=== PATIENT | male | born 1960 | race Caucasian/White ===

== ENCOUNTER 2023-12-09 09:15 | Outpatient (OUT) | payer OTHER, SELFPAY ==
[2023-12-09 09:40] LABS: Estimated Average Glucose 180 mg/dL; Glycohemoglobin A1C 7.9 % (4.5-6.2)
[2023-12-09 09:53] LABS: Anion Gap 10.1; BUN Creatinine Ratio 8.8; Calcium 9.1 mg/dL (8.5-10.1); Carbon Dioxide 32.3 mmol/L (21.0-32.0); Chloride 102 mmol/L (98-107); Estimated GFR (African America >60 (>=60); Estimated GFR (Non-African Ame >60 (>=60); Glucose 188 mg/dL (74-106); Potassium 3.4 mmol/L (3.5-5.1); Sodium 141 mmol/L (136-145)
== END 2023-12-09 09:16 | disposition home or self-care (01) ==
LOC: LAB 09:19
PROVIDERS: PCP Internal Medicine; Visit Provider Internal Medicine
DX: E11.65 Type 2 diabetes mellitus with hyperglycemia (principal); I10 Essential (primary) hypertension
CPT/HCPCS: 36415; 80048; 83036

== ENCOUNTER 2023-12-30 12:51 | Outpatient (OUT) | payer OTHER, SELFPAY ==
--- NOTE | 2023-12-30 12:54 | CT_ITS ---
[address] [address] Patient Name: ANA MARIA MARY MRN: [id number] date: 1960 Sex: M Assigned Patient Location: CT Current Patient Location: Accession/Order Number: [id number] Exam Date: 12/30/2023 12:56 Report Date: 12/31/2023 06:11 At the request of: RADHA LUNDBERG Procedure: CT lung screening low-dose EXAMINATION: CT lung screening low-dose HISTORY: Nicotine Dependence F17.211 COMPARISON: No relevant comparison available. TECHNIQUE: Axial, Coronal, and Sagittal images were created without the administration of IV contrast material. Dose reduction techniques were achieved by using automated exposure control and/or adjustment of mA and/or kV according to patient size and/or use of iterative reconstruction technique. FINDINGS: LUNGS: No visible pulmonary disease. PLEURA: No mass, effusion, or pneumothorax. VASCULATURE: No abnormality. ALEXANDR: No mass or pathologic adenopathy. MEDIASTINUM: No mass or pathologic adenopathy. CARDIAC: No enlargement, pericardial thickening, or pericardial effusion. Coronary Artery calcifications: Coronary calcifications are mild. AORTA: No aneurysm or dissection. CHEST WALL: No mass or axillary adenopathy BONES: No bone lesion or fracture. LIMITED ABDOMEN: No suspicious findings. Limited images of the upper abdomen. OTHER: Negative. CT/CT lung screening low-dose IMPRESSION: 1. Lung-RADS Category 1 Negative. No nodules and definitely benign nodules. Continue annual screening with LDCT in 12 months. Electronically authenticated by: GLENN LAW Date: 12/31/2023 06:11
== END 2023-12-30 12:52 | disposition home or self-care (01) ==
LOC: CT 12:51
PROVIDERS: PCP Internal Medicine; Visit Provider Internal Medicine
DX: F17.211 Nicotine dependence, cigarettes, in remission (principal)
CPT/HCPCS: 71271

== ENCOUNTER 2024-05-03 16:38 | Outpatient (OUT) | payer BC, SELFPAY ==
--- OUTSIDE RECORDS SUMMARY | 2024-05-03 16:43 | XMS_ITS | CCD ---
Author Organization [facility] Care Team Providers Care Components Engineer Name Role Phone Talya Mcnamara Cedric Lundberg Unavailable JADIEL, DR STEELE Admitting Unavailable JADIEL, DR STEELE Attending Unavailable JADIEL, DR STEELE Primary Care Unavailable JADEIL, DR STEELE Consulting Unavailable JADIEL, DR STEELE Admitting Unavailable JADIEL, DR STEELE Attending Unavailable JADIEL, DR STEELE Primary Care Unavailable JADIEL, DR STEELE Consulting DO Cedric Dumas Primary Care Provider MD Talya Mcnamara Attending Provider Talya Mcnamara Attending Unavailable Talya Mcnamara Admitting Unavailable Cedric Lundberg Primary Care Cedric Dumas DO Primary Care Provider [phone] Talya Mcnamara MD Attending Provider [phone] Medications Current Medications Medication Drug Class(es) Dates Sig (Normalized) Sig (Original) allopurinol 300 mg oral tablet (20 sources) Xanthine Oxidase Inhibitor Start: 09-08-2023 End: 02-29-2024 take 1 tablet by mouth once daily Allopurinol 300 mg tablet Active 0 .ROUTE .COMPLEX 180 February 29, 2024 4:58pm TAKE 1 TABLET BY MOUTH DAILY Start: 09-08-2023 take 1 tablet by carmen th once daily Allopurinol Active 0 .ROUTE .COMPLEX 90 September 08, 2023 11:23am TAKE 1 TABLET BY MOUTH DAILY Start: 09-07-2020 End: 09-08-2023 take 1 tablet by mouth once daily Allopurinol 300 mg tablet Discontinued 300 MG PO Daily September 06, 2020 11:00pm September 08, 2023 10:23am Allopurinol Acti ve alogliptin 25 mg oral tablet (6 sources) Start: 08-27-2023 take 1 tablet by mouth once daily in the morning Alogliptin 25 mg tablet Active 25 MG PO Every morning August 26, 2023 11:00pm glimepiride 2 mg oral tablet (20 sources) Sulfonylurea Start: 12-14-2023 take 3 mg by mouth once daily Glimepiride 2 mg tablet Active 3 MG PO Daily 135 90 December 14, 2023 9:44am Start: 12-14-2023 take 3 mg by mouth once daily Glimepiride Active 3 MG PO Daily 135 90 December 14, 2023 10:44am Start: 11-30-2023 End: 12-14-2023 take 1 tablet by mouth once daily 30 minutes before breakfast Glimepiride Discontinued 0 .ROUTE .COMPLEX November 30, 2023 8:50pm December 14, 2023 10:46am TAKE 1 TABLET BY MOUTH DAILY 30 MINUTES BEFORE BREAKFAST * do not skip lunch or supper* Start: 11-30-2023 End: 12-14-2023 take 1 tablet by mouth once daily 30 minutes before breakfast Glimepiride 2 mg tablet Discontinued 0 .ROUTE .COMPLEX November 30, 2023 7:50pm December 14, 2023 9:46am TAKE 1 TABLET BY MOUTH DAILY 30 MINUTES BEFORE BREAKFAST * do not skip lunch or supper* Start: 11-30-2023 End: 11-30-2023 take 1 tablet by mouth once daily 30 minutes before breakfast Glimepiride Discontinued 0 .ROUTE .COMPLEX November 30, 2023 8:39am November 30, 2023 8:50pm TAKE 1 TABLET BY MOUTH DAILY 30 MINUTES BEFORE BREAKFAST * do not skip lunch or supper* Start: 09-07-2020 End: 11-30-2023 take 1 tablet by mouth once daily Glimepiride 2 mg tablet Discontinued 2 MG PO Daily September 06, 2020 11:00pm November 30, 2023 7:39am metFORMIN hydrochloride 1000 mg oral tablet (20 sources) Biguanide Start: 11-17-2023 take 1 tablet by mouth twice daily at mealtime Metformin 1,000 mg tablet Active 0 .ROUTE .COMPLEX 60 November 17, 2023 7:46am TAKE 1 TABLET BY MOUTH TWICE DAILY WITH FOOD Start: 08-27-2023 End: 11-17-2023 take 1 tablet by mouth twice daily Metformin 1,000 mg tablet Discontinued 1000 MG PO Twice daily 60 30 August 26, 2023 11:00pm November 17, 2023 7:47am Start: 09-07-2020 End: 08-27-2023 take 2 tablets by mouth once daily Metformin 1,000 mg tablet Discontinued 2000 MG PO Daily September 06, 2020 11:00pm August 27, 2023 11:34am Start: 09-07-2020 End: 08-27-2023 take 2000 mg by mouth once daily Metformin Discontinue d 2000 MG PO Daily September 07, 2020 12:00am August 27, 2023 12:34pm take 1 tablet by carmen th twice daily at mealtime metFORMIN HCl 1000 MG TAKE 1 TABLET BY MOUTH TWICE DAILY WITH FOOD Active potassium chloride 10 meq extended release oral tablet (20 sources) Start: 08-27-2023 End: 11-30-2023 take 1 tablet by mouth once daily Potassium Chloride 10 mEq tablet extended release Active 0 .ROUTE .COMPLEX 150 November 30, 2023 7:39am TAKE 1 TABLET BY MOUTH DAILY Start: 08-27-2023 End: 08-27-2023 Potassium Chloride (Klor-Con 10) 10 mEq tablet extended release Discontinued 10 MEQ PO Daily 30 August 27, 2023 1:00pm August 27, 2023 3:58pm sertraline 100 mg oral tablet (20 sources) Serotonin Reuptake Inhibitor Start: 09-04-2023 End: 02-29-2024 take 1 tablet by mouth once daily Sertraline 100 mg tablet Active 0 .ROUTE .COMPLEX 270 February 29, 2024 4:59pm TAKE 1 & 1/2 (ONE AND ONE-HALF) TABLETS BY MOUTH DAILY Start: 06-01-2023 End: 09-04-2023 Sertraline 100 mg tablet Dis continued MG PO May 31, 2023 11:00pm September 04, 2023 7:42am FreeTextSig: TAKE 1 AND 1/2 TABLETS BY MOUTH DAILY; Note: Source Status: Taking; Refills: 1; Qty: 135 Tablet; Provider: Jadiel Steele ( ) Start: 06-01-2023 End: 09-04-2023 Sertraline Discontinued MG P O June 01, 2023 12:00am September 04, 2023 8:42am FreeTextSig: TAKE 1 AND 1/2 TABLETS BY MOUTH DAILY; Note: Source Status: Taking; Refills: 1; Qty: 135 Tablet; Provider: Jadiel Steele ( ) Sertraline HCl 1 00 MG TAKE 1 AND 1/2 TABLETS BY MOUTH DAILY for 90 Active Sertraline HCl 1 00 MG TAKE 1 AND 1/2 TABLETS BY MOUTH DAILY for 90 Active Sertraline HCl A ctive Completed/Discontinued Medications Medication Drug Class(es) Dates Sig (Normalized) Sig (Original) amoxicillin 875 mg / clavulanate 125 mg oral tablet (11 sources) Penicillin-class Antibacterial Start: 06-01-2023 End: 07-14-2023 take 1 tablet by mouth every twelve hours Amoxicillin-Pot Clavulanate 875-125 mg tablet Discontinued 1 TAB PO Every 12 hours May 31, 2023 11:00pm July 14, 2023 8:59am FreeTextSi tablet Orally every 12 hrs; Note: Source Status: Taking; Refills: 0; Qty: 14 Tablet; Provider: Jadiel Valladares Start: 02-10-2023 take 1 tablet by carmen th every twelve hours Amoxicillin-Pot Clavulanate 875-125 MG 1 tablet Orally every 12 hrs for 7 days Jan, Active hydroCHLOROthiazide 50 mg oral tablet (20 sources) Thiazide Diuretic Start: 2023 End: 2023 take 3 tablets by mouth once daily Hydrochlorothiazide 50 mg tablet Discontinued 150 MG PO Daily 2023 9:36am 2023 9:37am Start: 2023 End: 2023 take 150 mg by mouth once daily Hydrochlorothiazide Discontinued 150 MG PO Daily 2023 10:36am 2023 10:37am Start: 09-07-2020 End: 2023 take 2 tablets by mouth once daily Hydrochlorothiazide 50 mg tablet Discontinued 100 MG PO Daily 2023 9:37am 2023 9:38am Start: 09-07-2020 End: 2023 take 100 mg by mouth once daily Hydrochlorothiazide Discontinued 100 MG PO Daily 2023 10:37am 2023 10:38am take 1 tablet by carmen th every twenty-four hours hydroCHLOROthiazide 50 MG 1 tablet in the morning Orally Once a day for 90 days Active hydroCHLOROthiaz astrid Active metFORMIN hydrochloride 1000 mg / SITagliptin 50 mg oral tablet (12 sources) Biguanide, Dipeptidyl Peptidase 4 Inhibitor Start: 08-27-2023 End: 08-27-2023 take 1 tablet by mouth twice daily Sitagliptin Phos-Metformin (Janumet) 50-1,000 mg tablet Discontinued 1 TAB PO Twice daily 60 30 August 27, 2023 1:00pm August 27, 2023 9:22pm triamcinolone acetonide 40 mg/ml injectable suspension (20 sources) Corticosteroid Start: 07-08-2022 Kenalog-40 30 Mar, 2023 20 mg Problems Active Problems Problem Classification Problem Date Documented Date Episodic/Chronic Anal and rectal conditions (8 sources) Rectal polyp; Translations: [Hyperplastic rectal polyp] Episodic Anxiety disorders (11 sources) Generalized anxiety disorder; Translations: [Generalized anxiety disorder] Chronic Bacterial infection; unspecified site (1 source) Bacterial infectious disease; Translations: [Other specified bacterial agents as the cause of diseases classified elsewhere] Episodic Calculus of urinary tract (15 sources) H/O: urinary stone; Translations: [Personal history of urinary calculi] 08-12-2023 Episodic Diabetes mellitus with complications (20 sources) Hyperglycemia due to type 2 diabetes mellitus; Translations: [Type 2 diabetes mellitus with hyperglycemia] Onset: 02-20-2022 Chronic Diabetes mellitus without complication (1 source) Impaired fasting glycemia; Translations: [Impaired fasting glucose] Episodic Essential hypertension (20 sources) Essential hypertension; Translations: [Essential (primary) hypertension] Chronic Hyperplasia of prostate (2 sources) Benign prostatic hypertrophy without outflow obstruction; Translations: [Hypertrophy (benign) of prostate without urinary obstruction and other lower urinary tract symptoms [LUTS]] Onset: 09-05-2016 Chronic Immunizations and screening for infectious disease (1 source) Vaccination given; Translations: [Encounter for immunization] Episodic Osteoarthritis (20 sources) Arthritis of first carpometacarpal joint of left hand; Translations: [Unilateral primary osteoarthritis of first carpometacarpal joint, left hand] Chronic Other and unspecified benign neoplasm (8 sources) Benign neoplasm of rectum and anal canal; Translations: [Tubular adenoma polyp of rectum] Episodic Other congenital anomalies (1 source) Congenital spondylolysis of lumbosacral region; Translations: [Congenital spondylolysis, lumbosacral region] Onset: 03-06-2017 Chronic Other connective tissue disease (16 sources) 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; Translations: [Palmar fascial fibromatosis [Dupuytren]] 06-01-2023 Episodic Other connective tissue disease (15 sources) Palmar fascial fibromatosis [Dupuytren]; 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] Episodic Other connective tissue disease (15 sources) Trigger finger, left index finger; Translations: [Trigger finger (acquired)] Episodic Other connective tissue disease (13 sources) Trigger finger, left ring finger; Translations: [Trigger finger (acquired)] Episodic Other connective tissue disease (3 sources) Trigger finger, left little finger Episodic Other connective tissue disease (8 sources) Contracture of palmar fascia; Translations: [Palmar fascial fibromatosis [Dupuytren]] Episodic Other connective tissue disease (4 sources) Acquired trigger finger; Translations: [Trigger finger, left index finger] Episodic Other connective tissue disease (12 sources) Pain in left hand; Translations: [Pain in limb] Onset: 01-22-2024 Episodic Other connective tissue disease (7 sources) Hand pain; Translations: [Pain in left hand] 06-01-2023 Episodic Other connective tissue disease (16 sources) Triggering of digit; Translations: [Trigger finger, left index finger] 06-01-2023 Episodic Other connective tissue disease (4 sources) Tendonitis of left wrist; Translations: [Other enthesopathies, not elsewhere classified] 01-22-2024 Episodic Other connective tissue disease (6 sources) Other enthesopathies, not elsewhere classified; Translations: [Other tenosynovitis of hand and wrist] 01-22-2024 Episodic Other non-traumatic joint disorders (1 source) Arthralgia of the upper arm; Translations: [Pain in right elbow] Episodic Other non-traumatic joint disorders (1 source) Pain in left wrist Episodic Other nutritional; endocrine; and metabolic disorders (11 sources) Body mass index 30+ - obesity; Translations: [Body mass index (BMI) 35.0-35.9, adult] Onset: 09-14-2015 Chronic Other nutritional; endocrine; and metabolic disorders (7 sources) Severe obesity; Translations: [Morbid (severe) obesity due to excess calories] Chronic Other nutritional; endocrine; and metabolic disorders (2 sources) Morbid (severe) obesity due to excess calories Chronic Other nutritional; endocrine; and metabolic disorders (2 sources) Body mass index (BMI) 35.0-35.9, adult Chronic Other nutritional; endocrine; and metabolic disorders (7 sources) Obesity; Translations: [Obesity, unspecified] 2023 Chronic Other nutritional; endocrine; and metabolic disorders (2 sources) Obese class II; Translations: [Body mass index 35.0-35.9, adult] Onset: 09-14-2015 Chronic Other nutritional; endocrine; and metabolic disorders (5 sources) Obesity, unspecified; Translations: [Obesity, unspecified] 2023 Chronic Other screening for suspected conditions (not mental disorders or infectious disease) (18 sources) Encounter for screening for malignant neoplasm of prostate; Translations: [Patient encounter status] Episodic Comment on above: Problem List clean-u p per request of Phys. EHR Cmte Otitis media and related conditions (2 sources) Acute suppurative otitis media without spontaneous rupture of ear drum; Translations: [Acute suppurative otitis media without spontaneous rupture of eardrum] Onset: 06-03-2018 Episodic Residual codes; unclassified (2 sources) Tobacco user; Translations: [Nondependent tobacco use disorder] Onset: 09-14-2015 Episodic Sprains and strains (2 sources) Strain of muscle and/or tendon of lower leg; Translations: [Strain of unspecified muscle(s) and tendon(s) at lower leg level, right leg, initial encounter] Episodic Substance-related disorders (20 sources) Tobacco dependence in remission; Translations: [Nicotine dependence, cigarettes, in remission] Onset: 09-14-2015 Chronic Comment on above: Age started 17, age stopped 56, PPD 1,LDCT: no suspicious nodules - 12/2023 Age started 17, age stopped 56, 1 PPD,LDCT: no suspicious nodules - 12/2023 Past or Other Problems Problem Classification Problem Date Documented Da te Episodic/Chronic Diseases of mouth; excluding dental (1 source) Recurrent aphthous stomatitis; Translations: [Recurrent oral aphthae] Onset: 06-03-2018 Episodic Joint disorders and dislocations; trauma-related (1 source) Current tear of medial cartilage AND/OR meniscus of knee; Translations: [Other tear of medial meniscus, current injury, right knee, initial encounter] Onset: 07-28-2016 Episodic Nonspecific chest pain (1 source) Chest pain; Translations: [Chest pain, unspecified] Onset: 06-03-2018 Episodic Other and unspecified benign neoplasm (1 source) Lipoma (clinical); Translations: [Lipoma of unspecified site] Onset: 06-03-2018 Episodic Other bone disease and musculoskeletal deformities (1 source) Tietze's disease; Translations: [Tietze's disease] Onset: 06-03-2018 Episodic Other gastrointestinal disorders (1 source) Oropharyngeal dysphagia; Translations: [Dysphagia, oropharyngeal phase] Onset: 09-07-2017 Episodic Other nervous system disorders (1 source) Paresthesia; Translations: [Paresthesia of skin] Onset: 03-09-2018 Episodic Other non-traumatic joint disorders (1 source) Arthralgia of the lower leg; Translations: [Pain in joint, lower leg] Onset: 07-28-2016 Episodic Other upper respiratory infections (1 source) Acute maxillary sinusitis; Translations: [Acute recurrent maxillary sinusitis] Onset: 05-14-2015 Episodic Screening and history of mental health and substance abuse codes (1 source) History of tobacco use; Translations: [Personal history of tobacco use, presenting hazards to health] Onset: 09-14-2015 Episodic Results Test Name Value Interpretation Reference Range Facility XR hand LT min 3V*on 024 XR hand LT min 3V* [facility] [address] [place] [address] XRay Report Signed Patient: Sharan Clemente MR#: [id number] : 1960 Acct:[id number] Age/Sex: 63 / M ADM Date: 01/22/24 Loc: [facility] Room: Type: [facility] Attending Dr: Talya Mcnamara MD Copies to: Talya Mcnamara MD Ordering Provider: Talya Mcnamara MD Date of Service: 01/22/24 XR/XR hand LT min 3V*: M79.642 - Pain in left hand LEFT HAND - 4 views COMPARISON: None CLINICAL DATA: chronic pain at the first carpal metacarpal joint. AP, lateral and oblique views were obtained along with supplemental AP view of the thumb. There is no acute fracture or dislocation. There is joint space narrowing at the first carpal metacarpal joint where there is also hypertrophy. There are no significant soft tissue abnormalities. There is atherosclerotic disease involving a vessel traversing the lateral wrist XR/XR hand LT min 3V* IMPRESSION: DEGENERATIVE CHANGE AT THE FIRST CARPOMETACARPAL JOINT. NO ACUTE BONY FINDINGS. Impression dictated by: Katie Castro M.D.01/22/2024 2:07 PM Dictation Location: [place] [address] Transcribed By: [facility] 01/22/24 140 Dictated By: Katie Castro MD 01/22/24 140 Signed By: 01/22/24 140 Normal [facility] Estimated glomerular filtrat ion rate (GFR) non- Americanon 12-09-2023 GFR/1.73 sq M.predicted among non-blacks MDRD (S/P/Bld) [Vol rate/Area] mL/min/{1.73_m2} >=60 [facility] Glucose mean value [Mass/vol ume] in Blood Estimated from glycated hemoglobinon 12-09-2023 Average glucose Estimated from glycated hemoglobin (Bld) [Mass/Vol] 180 mg/dL [facility] Laboratory - Chemistry and C hemistry - challengeon 12-09-2023 Calcium [Mass/Vol] 9.1 mg/dL 8.5-10.1 [facility] Chloride [Moles/Vol] 102 mmol/L 98-107 [facility] CO2 [Moles/Vol] 32.3 mmol/L High 21.0-32.0 [facility] Creatinine [Mass/Vol] 0.91 mg/dL 0.70-1.30 [facility] GFR/1.73 sq M.predicted MDRD (S/P/Bld) [Vol rate/Area] mL/min/{1.73_m2} >=60 [facility] Glucose [Mass/Vol] 188 mg/dL High 74-106 [facility] Potassium [Moles/Vol] 3.4 mmol/L Low 3.5-5.1 [facility] Sodium [Moles/Vol] 141 mmol/L 136-145 [facility] Urea nitrogen [Mass/Vol] 8.0 mg/dL 7.0-18.0 [facility] Urea nitrogen/Creatinine [Mass ratio] 8.8 mg/mg [facility] Laboratory - Hematology and Cell countson 12-09-2023 HbA1c (Bld) [Mass fraction] 7.9 % High 4.5-6.2 [facility] Comment on above: ADA RECOMMENDED LIMI T 4.0 - 6.0ADA THERAPEUTIC TARGET < 7.0ACTION SUGGESTED> 7.0 Serum or plasma anion gap de terminationon 12-09-2023 Anion gap [Moles/Vol] 10.1 mmol/L [facility] Basophils Auto (Bld) [#/Vol] on 08-26-2023 Basophils (Bld) [#/Vol] 0.1 10 3/uL 0.0-0.1 [facility] Basophils/100 WBC Auto (Bld) on 08-26-2023 Basophils/100 WBC (Bld) 1.0 % 0.2-2.0 [facility] Cholesterol in LDL Calc [Mas s/Vol]on 08-26-2023 Cholesterol in LDL [Mass/Vol] 90.0 mg/dL [facility] Comment on above: <100 mg/dl [id number] 0-129 mg/dl NEAR OR ABOVE [id number] mg/dl BORDERLINE [id number] mg/dl HIGH>190 mg/dl VERY HIGH Cholesterol in VLDL Calc [Ma ss/Vol]on 08-26-2023 Cholesterol in VLDL [Mass/Vol] 40.0 mg/dL [facility] Eosinophils/100 WBC Auto (Bl d)on 08-26-2023 Eosinophils/100 WBC (Bld) 3.9 % 0.9-7.0 [facility] Erythrocyte distribution wid th Auto (RBC) [Ratio]on 08-26-2023 Erythrocyte distribution width (RBC) [Ratio] 11.8 % 11.0-15.0 [facility] Estimated glomerular filtrat ion rate (GFR) non- Americanon 08-26-2023 GFR/1.73 sq M.predicted among non-blacks MDRD (S/P/Bld) [Vol rate/Area] mL/min/{1.73_m2} >=60 [facility] Globulin Calc (S) [Mass/Vol] on 08-26-2023 Globulin (S) [Mass/Vol] 3.7 g/dL [facility] Glucose mean value [Mass/vol ume] in Blood Estimated from glycated hemoglobinon 08-26-2023 Average glucose Estimated from glycated hemoglobin (Bld) [Mass/Vol] 203 mg/dL [facility] Hematocrit Auto (Bld) [Volum e fraction]on 08-26-2023 Hematocrit (Bld) [Volume fraction] 44.0 % 42.0-54.0 [facility] Hemoglobin [Mass/volume] in Bloodon 08-26-2023 Hemoglobin (Bld) [Mass/Vol] 15.0 g/dL 14.0-18.0 [facility] Laboratory - Chemistry and C hemistry - challengeon 08-26-2023 Albumin [Mass/Vol] 4.0 g/dL 3.4-5.0 [facility] ALP [Catalytic activity/Vol] 86 U/L 46-116 [facility] ALT [Catalytic activity/Vol] 31 U/L 16-63 [facility] AST [Catalytic activity/Vol] 16 U/L 15-37 [facility] Bilirubin [Mass/Vol] 0.6 mg/dL 0.2-1.0 [facility] Calcium [Mass/Vol] 9.3 mg/dL 8.5-10.1 [facility] Chloride [Moles/Vol] 100 mmol/L 98-107 [facility] Cholesterol [Mass/Vol] 178 mg/dL <=200 [facility] Cholesterol in HDL [Mass/Vol] 48 mg/dL 40-60 [facility] Comment on above: > or =60 mg/dl - LOW CARDIOVASCULAR RISK<40 mg/dl - HIGH CARDIOVASCULAR RISK CO2 [Moles/Vol] 32.4 mmol/L High 21.0-32.0 [facility] Creatinine [Mass/Vol] 1.00 mg/dL 0.70-1.30 [facility] GFR/1.73 sq M.predicted MDRD (S/P/Bld) [Vol rate/Area] mL/min/{1.73_m2} >=60 [facility] Glucose [Mass/Vol] 197 mg/dL High 74-106 [facility] Potassium [Moles/Vol] 3.1 mmol/L Low 3.5-5.1 [facility] Protein [Mass/Vol] 7.7 g/dL 6.4-8.2 [facility] Sodium [Moles/Vol] 141 mmol/L 136-145 [facility] Triglyceride [Mass/Vol] 200 mg/dL High <=150 [facility] Urea nitrogen [Mass/Vol] 12.0 mg/dL 7.0-18.0 [facility] Urea nitrogen/Creatinine [Mass ratio] 12.0 mg/mg [facility] Laboratory - Hematology and Cell countson 08-26-2023 HbA1c (Bld) [Mass fraction] 8.7 % High 4.5-6.2 [facility] Comment on above: ADA RECOMMENDED LIMI T 4.0 - 6.0ADA THERAPEUTIC TARGET < 7.0ACTION SUGGESTED> 7.0 Immature granulocytes/100 WBC (Bld) 0.3 % 0.0-0.5 [facility] Leukocytes [#/volume] correc renato for nucleated erythrocytes in Blood by Automated counon 08-26-2023 WBC corrected for nucl RBC Auto (Bld) [#/Vol] 7.7 10 3/uL 4.0-11.0 [facility] Lymphocytes Auto (Bld) [#/Vo l]on 08-26-2023 Lymphocytes (Bld) [#/Vol] 2.6 10 3/uL 1.2-3.8 [facility] Lymphocytes/100 WBC Auto (Bl d)on 08-26-2023 Lymphocytes/100 WBC (Bld) 33.3 % 20.5-60.0 [facility] MCH Auto (RBC) [Entitic mass ]on 08-26-2023 MCH (RBC) [Entitic mass] 30.9 pg 25.9-34.0 [facility] MCHC Auto (RBC) [Mass/Vol]on 08-26-2023 MCHC (RBC) [Mass/Vol] 34.1 g/dL 29.9-35.2 [facility] MCV Auto (RBC) [Entitic vol] on 08-26-2023 MCV (RBC) [Entitic vol] 90.5 fL 80.0-94.0 [facility] Monocytes Auto (Bld) [#/Vol] on 08-26-2023 Monocytes (Bld) [#/Vol] 0.6 10 3/uL 0.3-0.8 [facility] Monocytes/100 WBC Auto (Bld) on 08-26-2023 Monocytes/100 WBC (Bld) 7.8 % 1.7-12.0 [facility] Neutrophils Auto (Bld) [#/Vo l]on 08-26-2023 Neutrophils (Bld) [#/Vol] 4.2 10 3/uL 1.4-6.5 [facility] Neutrophils/100 WBC Auto (Bl d)on 08-26-2023 Neutrophils/100 WBC (Bld) 53.7 % 43.0-75.0 [facility] No Panel Informationon 08-25 Eosinophils # (Auto) 0.3 10 3/uL 0.0-0.7 [facility] Immature Granulocyte # (Auto) 0.02 10 3/uL 0.00-0.03 [facility] Nucleated Red Blood Cells/100 WBC 0 [facility] Prostate Specific Antigen Screen 1.46 ng/mL <=4.00 [facility] Platelet mean volume Auto (B ld) [Entitic vol]on 08-26-2023 Platelet mean volume (Bld) [Entitic vol] 9.9 fL 9.5-13.5 [facility] Platelets Auto (Bld) [#/Vol] on 08-26-2023 Platelets (Bld) [#/Vol] 386 10 3/uL 150-450 [facility] RBC Auto (Bld) [#/Vol]on RBC (Bld) [#/Vol] 4.86 10 6/uL 4.70-6.10 [facility] Serum or plasma albumin/glob ulin mass ratioon 08-26-2023 Albumin/Globulin [Mass ratio] 1.1 {ratio} [facility] Serum or plasma anion gap de terminationon 08-26-2023 Anion gap [Moles/Vol] 11.7 mmol/L [facility] Serum or plasma total choles terol/high density lipoprotein (HDL) cholesterol mass yamila 08-26-2023 Cholesterol.total/Ch olesterol in HDL [Mass ratio] 3.7 {ratio} [facility] Comment on above: 3.3 - 4.4 LOW RISK4. 4 - 7.1 AVERAGE RISK7.1 - 11.0 MODERATE RISK>11.0 HIGH RISK CBC AUTO DIFFon 08-01-2022 BASO # 0.1 103/ul Normal 0.0-0.1 [facility] [facility] Comment on above: Performed By: #### C BC #### [facility] [address] [address] [address] Wendi Martinez Basophils/100 WBC (Bld) 0.9 % Normal 0.2-2.0 [facility] Comment on above: Performed By: #### C BC #### [facility] [address] [address] [address] Wendi Martinez EO # 0.3 103/ul Normal 0.0-0.7 [facility] Comment on above: Performed By: #### C BC #### [facility] [address] [address] [address] Wendi Martinez Eosinophils/100 WBC (Bld) 3.8 % Normal 0.9-7.0 [facility] Comment on above: Performed By: #### C BC #### [facility] [address] [address] [address] Wendi Martinez Erythrocyte distribution width (RBC) [Ratio] 12.1 % Normal 11.0-15.0 [facility] Comment on above: Performed By: #### C BC #### [facility] [address] [address] [address] Wendi Martinez Hematocrit (Bld) [Volume fraction] 45.6 % Normal 42.0-54.0 [facility] Comment on above: Performed By: #### C BC #### [facility] [address] [address] [address] Wendi Martinez Hemoglobin (Bld) [Mass/Vol] 15.5 g/dL Normal 14.0-18.0 [facility] Comment on above: Performed By: #### C BC #### [facility] [address] [place] [address] Dr. Wendi Martinez IG # 0.02 10e3/ul Normal 0.00-0.03 [facility] Comment on above: Performed By: #### C BC #### [facility] [address] [place] [address] Dr. Wendi Martinez IG % 0.3 % Normal 0.0-0.5 [facility] Comment on above: Performed By: #### C BC #### [facility] [address] [place] [address] Dr. Wendi Martinez LYMPH # 2.7 103/ul Normal 1.2-3.8 [facility] Comment on above: Performed By: #### C BC #### [facility] [address] [place] [address] Dr. Wendi Martinez Lymphocytes/100 WBC (Bld) 35.1 % Normal 20.5-60.0 [facility] Comment on above: Performed By: #### C BC #### [facility] [address] [place] [address] Dr. Wendi Martinez MANUAL DIFF REQ NO Normal [facility] Comment on above: Performed By: #### C BC #### [facility] [address] [place] [address] Dr. Wendi Martinez MCH (RBC) [Entitic mass] 30.8 pg Normal 25.9-34.0 [facility] Comment on above: Performed By: #### C BC #### [facility] [address] [place] [address] Dr. Wendi Martinez MCHC (RBC) [Mass/Vol] 34.0 g/dL Normal 29.9-35.2 [facility] Comment on above: Performed By: #### C BC #### [facility] [address] [place] [address] Dr. Wendi Martinez MCV (RBC) [Entitic vol] 90.7 fL Normal 80.0-94.0 [facility] Comment on above: Performed By: #### C BC #### [facility] [address] [place] [address] Dr. Wendi Martinez MONO # 0.7 103/ul Normal 0.3-0.8 [facility] Comment on above: Performed By: #### C BC #### [facility] [address] [place] [address] Dr. Wendi Martinez Monocytes/100 WBC (Bld) 9.3 % Normal 1.7-12.0 [facility] Comment on above: Performed By: #### C BC #### [facility] [address] [place] [address] Dr. Wendi Martinez NEUT # 3.8 103/ul Normal 1.4-6.5 [facility] Comment on above: Performed By: #### C BC #### [facility] [address] [place] [address] Dr. Wendi Martinez Neutrophils/100 WBC (Bld) 50.6 % Normal 43.0-75.0 [facility] Comment on above: Performed By: #### C BC #### [facility] [address] [place] [address] Dr. Wendi Martinez Platelet mean volume (Bld) [Entitic vol] 9.9 fL Normal 9.5-13.5 [facility] Comment on above: Performed By: #### C BC #### [facility] [address] [place] [address] Dr. Wendi Martinez PLT 345 103/ul Normal 150-450 [facility] Comment on above: Performed By: #### C BC #### [facility] [address] [place] [address] Dr. Wendi Martinez RBC 5.03 106/ul Normal 4.70-6.10 [facility] Comment on above: Performed By: #### C BC #### [facility] [address] [place] [address] Dr. Wendi Martinez WBC 7.6 103/ul Normal 4.0-11.0 [facility] Comment on above: Performed By: #### C BC #### [facility] [address] [place] [address] Dr. Wendi Martinez Complete Blood Count and Dif abdirashid 08-01-2022 Anisocytosis Ql (Bld) [facility] [employer] Other Basophilic stippling LM Ql (Bld) [employer] Other RBC morphology finding Nom (Bld) [employer] Other Complete Blood Count and Diff [employer] Other Comprehensive Metabolic Pane neftaly 08-01-2022 Albumin [Mass/Vol] 4.946690 g/dL 3.4-5.0 g/dL [facility] [employer] Other Calcium [Mass/Vol] 9.1484455 mg/dL 8.5-10 .1 mg/dL [facility] Other CO2 [Moles/Vol] 30.15256658 mmol/L 21.0-3 2.0 mmol/L [facility] Other Creatinine [Mass/Vol] 0.76396035 mg/dL 0.70-1.30 mg/dL [facility] [employer] Other Potassium [Moles/Vol] 3.57118274 mmol/L Critically low 3.5-5.1 mmol/L [facility] Other Protein [Mass/Vol] 8.324902 g/dL Critically high 6.4-8.2 g /dL [employer] [employer] Other Urea nitrogen [Mass/Vol] 12.0996777 mg/dL 7.0-18.0 mg/dL [employer] [employer] Other Comprehensive Metabolic Panel see note [employer] Other Comprehensive Metabolic Panel 141 mmol/L 136-145 mmol/L [employer] Other Comprehensive Metabolic Panel 139 mg/dL Critically high 74-106 mg/dL [employer] [facility] [employer] Other Comprehensive Metabolic Panel >60 mL/min/1.73m2 >=60 mL/min/1.73m2 [employer] Other Comprehensive Metabolic Panel 0.6 mg/dL 0.2-1.0 mg/dL [facility] [employer] Other Comprehensive Metabolic Panel 4.2 g/dL [facility] [employer] Other Albumin/Globulin [Mass ratio] 1.0 {ratio} [employer] Other Comment on above: Performed By: #### L IPID, CMP #### [facility] [address] [address] [address] Wendi Martinez ALP [Catalytic activity/Vol] 86 U/L 46-116 U/L [facility] Other Comment on above: Performed By: #### L IPID, CMP #### [facility] [address] [place] [address] Dr. Wendi Martinez ALT [Catalytic activity/Vol] 40 U/L 16-63 U/L [facility] Other Comment on above: Performed By: #### L IPID, CMP #### [facility] [address] [address] [address] Wendi Martinez Anion gap [Moles/Vol] 12.5 mmol/L [facility] Other Comment on above: Performed By: #### L IPID, CMP #### [facility] [address] [address] [address] Wendi Martinez AST [Catalytic activity/Vol] 25 U/L 15-37 U/L [facility] [employer] Other Comment on above: Performed By: #### L IPID, CMP #### [facility] [address] [place] [address] Dr. Wendi Martinez Chloride [Moles/Vol] 101 mmol/L 98-107 mmol/L [facility] [employer] Other Comment on above: Performed By: #### L IPID, CMP #### [facility] [address] [place] [address] Dr. Wendi Martinez Urea nitrogen/Creatinine [Mass ratio] 12.5 mg/mg [facility] [employer] Other Comment on above: Performed By: #### L IPID, CMP #### [facility] [address] [address] [address] Wendi Martinez GLYCOHEMOGLOBIN A1Con 2022 ADA RECOMMENDATION SEE BELOW Normal [facility] Comment on above: Result Comment: ADA RECOMMENDED LIMIT 4.0 - 6.0 ADA THERAPEUTIC TARGET < 7.0 ACTION SUGGESTED > 7.0 Performed By: #### A 1C #### [facility] [address] [address] [address] Wendi Martinez Glucose [Mass/Vol] 154 mg/dL Normal [facility] Comment on above: Performed By: #### A 1C #### [facility] [address] [address] [address] Wendi Martinez HbA1c (Bld) [Mass fraction] 7.0 % Critically high 4.5-6.2 [facility] Comment on above: Performed By: #### A 1C #### [facility] [address] [address] [address] Wendi Martinez LIPID PROFILEon 08-01-2022 CHOL-HDL RATIO NORM SEE BELOW Normal [facility] Comment on above: Result Comment: 3.3 - 4.4 LOW RISK 4.4 - 7.1 AVERAGE RISK 7.1 - 11.0 MODERATE RISK >11.0 HIGH RISK Performed By: #### L IPID, CMP #### [facility] [address] [address] [address] Wendi Martinez Cholesterol in LDL [Mass/Vol] 91.2 mg/dL Normal [facility] Comment on above: Performed By: #### L IPID, CMP #### [facility] [address] [address] [address] Wendi Martinez HDL NORMAL > or = 60 mg/dl - LOW CARDIOVASCULAR RISK <40 mg/dl - HIGH CARDIOVASCULAR RISK Normal [facility] Comment on above: Performed By: #### L IPID, CMP #### [facility] [address] [address] [address] Wendi Martinez LDL CALC NORMAL SEE BELOW Normal [facility] Comment on above: Result Comment: <100 mg/dl OPTIMAL 100 - 129 mg/dl NEAR OR ABOVE OPTIMAL 130 - 159 mg/dl BORDERLINE HIGH 160 - 189 mg/dl HIGH >190 mg/dl VERY HIGH Performed By: #### L IPID, CMP #### [facility] [address] [address] [address] Wendi Martinez VLDL CALC 14.8 mg/dL Normal [facility] Comment on above: Performed By: #### L IPID, CMP #### [facility] [address] [address] [address] Wendi Martinez Lipid Panelon 08-01-2022 Lipid Panel > or = 60 mg/dl - LOW CARDIOVASCULAR RISK <40 mg/dl - HIGH CARDIOVASCULAR RISK [facility] Other Lipid Panel SEE BELOW [employer] Other Lipid Panel 91.2 mg/dL [employer] Other Lipid Panel 14.8 mg/dL [facility] Other Cholesterol [Mass/Vol] 167 mg/dL <=200 mg/dL [facility] Other Comment on above: Performed By: #### L IPID, CMP #### [facility] [address] [address] [address] Wendi Martinez Cholesterol in HDL [Mass/Vol] 61 mg/dL Critically high 40-60 mg/dL [facility] Other Comment on above: Performed By: #### L IPID, CMP #### [facility] [address] [address] [address] Wendi Martinez Cholesterol.total/Ch olesterol in HDL [Mass ratio] 2.7 {ratio} [facility] Other Comment on above: Performed By: #### L IPID, CMP #### [facility] [address] [address] [address] Wendi Martinez Triglyceride [Mass/Vol] 74 mg/dL <=150 mg/dL [facility] Other Comment on above: Performed By: #### L IPID, CMP #### [facility] [address] [place] [address] Dr. Wendi Martinez MICROALBUMIN, RAND URon 07-21 mALB <1.3 Normal <=30.0 [facility] Comment on above: Performed By: #### M ALBR #### [facility] [address] [place] [address] Dr. Wendi Martinez PROF 14(COMP METB)on 023 Albumin [Mass/Vol] 4.3 g/dL Normal 3.4-5.0 [facility] Comment on above: Performed By: #### L IPID, CMP #### [facility] [address] [place] [address] Dr. Wendi Martinez Bilirubin [Mass/Vol] 0.6 mg/dL Normal 0.2-1.0 [facility] Comment on above: Performed By: #### L IPID, CMP #### [facility] [address] [place] [address] Dr. Wendi Martinez Calcium [Mass/Vol] 9.3 mg/dL Normal 8.5-10.1 [facility] Comment on above: Performed By: #### L IPID, CMP #### [facility] [address] [place] [address] Dr. Wendi Martinez CO2 [Moles/Vol] 30.9 mmol/L Normal 21.0-32.0 [facility] Comment on above: Performed By: #### L IPID, CMP #### [facility] [address] [place] [address] Dr. Wendi Martinez Creatinine [Mass/Vol] 0.96 mg/dL Normal 0.70-1.30 [facility] Comment on above: Performed By: #### L IPID, CMP #### [facility] [address] [place] [address] Dr. Wendi Martinez EGFR-AF PORTUGUESE >60 Normal >=60 [facility] Comment on above: Performed By: #### L IPID, CMP #### [facility] [address] [place] [address] Dr. Wendi Martinez EGFR-NON AF PORTUGUESE >60 Normal >=60 [facility] Comment on above: Performed By: #### L IPID, CMP #### [facility] [address] [address] [address] Wendi Martinez Globulin (S) [Mass/Vol] 4.2 g/dL Normal [facility] Comment on above: Performed By: #### L IPID, CMP #### [facility] [address] [address] [address] Wendi Martinez Glucose [Mass/Vol] 139 mg/dL Critically high 74-106 [facility] Comment on above: Performed By: #### L IPID, CMP #### [facility] [address] [place] [address] Dr. Wendi Martinez Potassium [Moles/Vol] 3.4 mmol/L Critically low 3.5-5.1 [facility] Comment on above: Performed By: #### L IPID, CMP #### [facility] [address] [place] [address] Dr. Wendi Martinez Protein [Mass/Vol] 8.5 g/dL Critically high 6.4-8.2 [facility] Comment on above: Performed By: #### L IPID, CMP #### [facility] [address] [place] [address] Dr. Wendi Martinez Sodium [Moles/Vol] 141 mmol/L Normal 136-145 [facility] Comment on above: Performed By: #### L IPID, CMP #### [facility] [address] [place] [address] Dr. Wendi Martinez Urea nitrogen [Mass/Vol] 12.0 mg/dL Normal 7.0-18.0 [facility] Comment on above: Performed By: #### L IPID, CMP #### [facility] [address] [place] [address] Dr. Wendi Martinez A1C with Estimated Average G luon 07-31-2022 A1C with Estimated Average Glu [employer] Other GLYCOHEMOGLOBIN A1Con 2021 ADA RECOMMENDATION SEE BELOW Normal [facility] Comment on above: Result Comment: ADA RECOMMENDED LIMIT 4.0 - 6.0 ADA THERAPEUTIC TARGET < 7.0 ACTION SUGGESTED > 7.0 Performed By: #### A 1C #### [facility] [address] [address] [address] Wendi Martinez Glucose [Mass/Vol] 148 mg/dL Normal [facility] Comment on above: Performed By: #### A 1C #### [facility] [address] [address] [address] Wendi Martinez HbA1c (Bld) [Mass fraction] 6.8 % Critically high 4.5-6.2 [facility] Comment on above: Performed By: #### A 1C #### [facility] [address] [address] [address] Wendi Martinez Vital Signs Date Time Vital Sign Value Performing Clinician Facility 04-14-2024 10:40-0500 Body height 187.96 cm Cedric Ball DO Work Phone: [facility] 04-14-2024 10:40-0500 Body mass index (BMI) [Ratio] 34.4 kg/m2 Cedric Ball DO Work Phone: [facility] 04-14-2024 10:40-0500 Body weight 121.78 kg Cedric Ball DO Work Phone: [facility] 04-14-2024 10:40-0500 Diastolic blood pressure 89 mm[Hg] Cedric Ball DO Work Phone: [facility] 04-14-2024 10:40-0500 Heart rate 97 /min Cedric Ball DO Work Phone: [facility] 04-14-2024 10:40-0500 Respiratory rate 12 /min Cedric Ball DO Work Phone: [facility] 04-14-2024 10:40-0500 Systolic blood pressure 153 mm[Hg] Cedric Ball DO Work Phone: [facility] 12-14-2023 10:27-0400 Body height 187.96 cm [facility] 12-14-2023 10:27-0400 Body mass index (BMI) [Ratio] 35.3 kg/m2 [facility] 12-14-2023 10:27-0400 Body weight 124.73 kg [facility] 12-14-2023 10:27-0400 Diastolic blood pressure 80 mm[Hg] [facility] 12-14-2023 10:27-0400 Heart rate 90 /min [facility] 12-14-2023 10:27-0400 SaO2% (BldA) [Mass fraction] 98 % [facility] 12-14-2023 10:27-0400 Systolic blood pressure 134 mm[Hg] [facility] 2023 10:07-0400 Body height 187.96 cm [facility] 2023 10:07-0400 Body mass index (BMI) [Ratio] 35.9 kg/m2 [facility] 2023 10:07-0400 Body weight 127.06 kg [facility] 2023 10:07-0400 Diastolic blood pressure 76 mm[Hg] [facility] 2023 10:07-0400 Heart rate 80 /min [facility] 2023 10:07-0400 Respiratory rate 16 /min [facility] 2023 10:07-0400 Systolic blood pressure 129 mm[Hg] [facility] 08-01-2022 09:30-0400 Body height 187.96 cm Cedric Ball Other [facility] [employer] Other 08-01-2022 09:30-0400 Body mass index (BMI) [Ratio] 35.28 kg/m2 Cedric Ball Other [facility] [employer] Other 08-01-2022 09:30-0400 Body weight 124.65 kg Cedric Ball Other [facility] [employer] Other 08-01-2022 09:30-0400 Diastolic blood pressure 78 mm[Hg] Cedric Ball Other [facility] Other 08-01-2022 09:30-0400 Respiratory rate 12 /min Cedric Ball Other [facility] [facility] Other 08-01-2022 09:30-0400 Systolic blood pressure 116 mm[Hg] Cedric Ball Other [facility] Other 08-01-2022 08:30-0400 Body height 187.96 cm Cedric Ball Other [facility] Other 08-01-2022 08:30-0400 Body mass index (BMI) [Ratio] 35.28 kg/m2 Cedric Ball Other [facility] [facility] [facility] Other 08-01-2022 08:30-0400 Body weight 124.65 kg Cedric Ball Other [facility] Other 08-01-2022 08:30-0400 Diastolic blood pressure 78 mm[Hg] Cedric Ball Other [facility] [facility] Other 08-01-2022 08:30-0400 Respiratory rate 12 /min Cedric Ball Other [facility] [facility] Other 08-01-2022 08:30-0400 Systolic blood pressure 116 mm[Hg] Cedric Ball Other [employer] Other Encounters Encounter Date Encounter Type Care Provider Facility Start: 04-14-2024 End: 04-14-2024 ambulatory Cedric Ball DO Work Phone: [facility] Work Phone: Start: 04-14-2024 End: 04-14-2024 Patient encounter procedure Cedric Ball DO Work Phone: [facility] Work Phone: Start: 04-05-2024 End: 04-05-2024 ambulatory Cedric Ball DO Work Phone: [facility] [place] Work Phone: Start: 04-05-2024 End: 04-05-2024 Patient encounter procedure Cedric Ball DO Work Phone: [facility] Work Phone: Start: 01-22-2024 End: 01-22-2024 ambulatory DO Cedric Ball Work Phone: [facility] Work Phone: Start: 01-22-2024 End: 01-22-2024 Patient encounter procedure DO Cedric Ball Work Phone: [facility] Work Phone: Start: 01-22-2024 End: 01-22-2024 Patient encounter procedure DO Cedric Ball Work Phone: [facility] Start: 01-22-2024 End: 01-22-2024 ambulatory DO Cedric Ball Work Phone: [facility] Work Phone: Start: 12-14-2023 End: 12-14-2023 ambulatory [facility] Work Phone: Start: 12-14-2023 End: 12-14-2023 Patient encounter procedure [facility] Work Phone: Start: 12-09-2023 Non-patient / Non-visit [facility] Work Phone: Start: 10-13-2023 End: 10-13-2023 ambulatory [facility] Work Phone: Start: 10-13-2023 End: 10-13-2023 Patient encounter procedure [facility] Work Phone: Start: 08-26-2023 Non-patient / Non-visit [facility] Work Phone: Start: 2023 End: 2023 ambulatory [facility] Work Phone: Start: 2023 End: 2023 Encounter for general adult medical examination without abnormal findings [facility] Start: 2023 End: 2023 Patient encounter procedure [facility] Work Phone: Start: 07-14-2023 End: 07-14-2023 ambulatory [facility] Work Phone: Start: 07-14-2023 End: 07-14-2023 Patient encounter procedure [facility] Work Phone: Start: 04-21-2023 End: 04-21-2023 ambulatory Talya Calvey Other [employer] Other Start: 04-21-2023 Office outpatient vi sit 15 minutes Talya Calvey [facility] Start: 04-21-2023 End: 04-21-2023 Patient encounter procedure [facility]- Start: 03-06-2023 End: 03-06-2023 ambulatory Cedric Lundberg Other [employer] [facility] Other Start: 03-06-2023 Telephone encounter Cedric Lundberg [facility] Start: 01-28-2023 End: 01-28-2023 ambulatory Talya Calvey Other [employer] Other Start: 01-28-2023 Office outpatient vi sit 15 minutes Talya Calvey [facility] Start: 11-12-2022 End: 11-12-2022 ambulatory Talya Calvey Other [employer] Other Start: 11-12-2022 Office outpatient vi sit 15 minutes Talya Calvey [facility] Start: 09-16-2022 End: 09-16-2022 ambulatory Talya Calvey Other [employer] Other Start: 09-16-2022 Office outpatient vi sit 15 minutes Talya Mcnamara [facility] Start: 08-01-2022 Encounter for genera l adult medical examination without abnormal findings Cedric Lundberg [facility] Start: 08-01-2022 Periodic preventive med est patient 40-64yrs Cedric Lundberg [facility] Start: 08-01-2022 End: 08-02-[address] CEDRIC LUNDBERG [facility] [employer] Other Start: 07-08-2022 End: 07-08-2022 ambulatory Talya Mcnamara Other [employer] Other Start: 07-08-2022 Office outpatient ne w 45 minutes Talya Mcnamara [facility] Start: 02-20-2022 End: 02-21-[address] CEDRIC LUNDBERG Facility: Start: 07-29-2021 Adult health examination Talya Mcnamara Other [employer] Other Procedures Date Procedure Procedure Detail Performing Clinician Start: 01-22-2024 Plain X-ray of left hand DO Cedric Lundberg Work Phone: Start: 08-01-2022 End: 08-01-2022 PSA screening Cedric Lundberg Other Comment on above: Performed By: #### [facility] #### [facility] [address] [place] [address] Dr. Wendi Martinez Start: 09-14-2015 General examination of patient Talya Mcnamara Other Depression screening Talya Mcnamara Other Screening for malign ant neoplasm of colon Talya Mcnamara Other Plan of Treatment Date Care Activity Detail Author Start: 01-22-2024 Plain X-ray of left hand XR hand LT min 3V* [facility] Start: 01-22-2024 XR Hand - left GE 3 Views [facility] Immunizations Immunization Date Immunization Notes Care Provider Mane seguratam 05-30-2023 zoster vaccine, live [facility] 02-10-2023 Prevnar 20 Talya Mcnamara Other [facility] 01-02-2022 influenza, injectabl e, quadrivalent, preservative free [facility] 01-02-2022 influenza, injectabl e, quadrivalent, contains preservative Cedric Lundberg Other [facility] [employer] Other 03-04-2021 COVID-19 Vaccine Pfi zer - Documentation Purposes Only Cedric Lundberg Other [facility] 02-11-2021 pneumococcal polysaccharide vaccine, 23 valent Talya Mcnamara Other [facility] 08-09-2020 COVID-19 Vaccine Pfi zer - Documentation Purposes Only Cedric Lundberg Other [facility] 07-19-2020 COVID-19 Vaccine Pfi zer - Documentation Purposes Only Cedric Lundberg Other [facility] 12-31-2019 influenza virus vaccine, split virus (incl. purified surface antigen) Talya Mcnamara Other [facility] [employer] Other 12-31-2019 influenza virus vaccine, unspecified formulation [facility] 01-04-2018 influenza virus vaccine, split virus (incl. purified surface antigen) Talya Mcnamara Other [facility] [employer] Other 01-04-2018 influenza virus vaccine, unspecified formulation [facility] 03-05-2015 influenza virus vaccine, split virus (incl. purified surface antigen) Talya Mcnamara Other [facility] [employer] Other 03-05-2015 influenza virus vaccine, unspecified formulation [facility] Payers Date Payer Category Payer Self-pay [id number] 2024 Unknown [id number] 1960 Unknown [id number] 1960 Unknown [id number] 1959 Unknown [id number] 1959 Unknown [id number] Unknown [id number] Unknown [id number] Unknown Raul CALLAHAN/PATRICIA [id number] Social History Date Type Detail Facility Unknown if ever smoked [facility] Other Sex Assigned At Sex Assigned At Bir [facility] Other Start: 09-07-2020 End: 12-14-2023 Tobacco smoking status NHIS Ex-smoker (finding) [facility] Start: 1960 Sex Assigned At Male F [facility] Start: 04-05-2024 End: 04-14-2024 Sex Male (finding) [facility] Clinical Notes 07-08-2022 to 01-22-2024 Note Date & Type Note Facility 01-22-2024 Evaluation note Diagnosis Onset Date Resolution Arthritis of carpometacarpal (CMC) joint of left thumb acute January 11:06am 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 acute January 22, 2024 11:06am Left wrist tendonitis acute Jan 11:06am Pain in left hand acute 2023 11:06am Trigger finger, left index finger acute January 21 11:06am Trigger finger, left ring finger acute January 21 11:06am Arthritis of carpometacarpal (CMC) joint of left thumb acute March 10:37am 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 acute April 05, 2024 10:37am Left wrist tendonitis acute Mar 10:37am Pain in left hand acute April 05, 2024 10:37am Trigger finger, left index finger acute April 05 10:37am [facility] Work Phone: [phone]) 442-242511-01-2024 Evaluation note* Diagnosis Onset Date Resolution Status Admit Date Arthritis of carpometacarpal (CMC) joint of left thumb acute Novem2023 11:06am 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 acute January 21 11:06am Left wrist tendonitis acute Jan 11:06am Pain in left hand acute 2023 11:06am Trigger finger, left index finger acute January 21 11:06am Trigger finger, left ring finger acu te January 22, 2024 11:06am Arthritis of carpometacarpal (CMC) joint of left thumb acute 2024 10:37am 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 acute April 05 10:37am Left wrist tendonitis acute Mar 10:37am Pain in left hand acute April 05, 2024 10:37am Trigger finger, left index finger acute April 05 10:37am Cigarette nicotine dependenc e in remission acute April 14 10:30am Essential (primary) hypertension acu te April 14, 2024 10:30am Nephrolithiasis acute March 242024 10:30am Obesity acute April 14, 2024 10:30am Type 2 diabetes mellitus wit h hyperglycemia acute April 14 10:30am [facility] Work Phone: 1(670) 175-729901-30-2024 Evaluation note* Encounter Date Diagnosis Assessment Notes Treatment Notes Treatment Clinical Notes Mar, 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 (ICD-10 - M72.0) Mar, Arthritis of carpometacarpal (CMC) joint of left thumb (ICD-10 - M18.12) Today, we had a discussion about the future of patient's CMC thumb arthritis. We explained since injection did not last 3 months we could consider doing another injection to see of the injection would be more effective this time around, or we could consider surgery. At this time patient would like to continue to proceed with injections. We performed a cortisone injection into the CMC joint under sterile technique. The patient tolerated this well without complication. We discussed that the finger may feel numb and tingle for hours after this injection. Mar, Trigger finger, left index finger (ICD-10 - M65.322) Mar, Trigger finger, left ring finger (ICD-10 - M65.342) Mar, Left hand pain (ICD- 10 - M79.642) [facility] Other 12-15-2023 Evaluation note* Encounter Date Diagnosis Assessment Notes Treatment Notes Treatment Clinical Notes Feb, Essential (primary) hypertension (ICD-10 - I10) [facility] Other 11-08-2023 Evaluation note* Encounter Date Diagnosis Assessment Notes Treatment Notes Treatment Clinical Notes Jan, 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 (ICD-10 - M72.0) Dupuyten's nodule and left thumb CMC joint injected with cortisone, patient tolerated well Jan, Arthritis of carpometacarpal (CMC) joint of left thumb (ICD-10 - M18.12) Jan, Trigger finger, left index finger (ICD-10 - M65.322) Jan, Trigger finger, left ring finger (ICD-10 - M65.342) Jan, Left hand pain (ICD- 10 - M79.642) [facility] Other 08-23-2023 Evaluation note* Encounter Date Diagnosis Assessment Notes Treatment Notes Treatment Clinical Notes Oct, 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 (ICD-10 - M72.0) Oct, Arthritis of carpometacarpal (CMC) joint of left thumb (ICD-10 - M18.12) Oct, Trigger finger, left index finger (ICD-10 - M65.322) We performed 1/1cc marcaine/40mg kenalog cortisone injection into the palmar aspect of the finger near at the A1 dl under sterile technique. The patient tolerated this well without complication. We discussed that the finger may feel numb and tingle for hours after this injection. Oct, Trigger finger, left ring finger (ICD-10 - M65.342) Oct, Trigger little finge r of left hand (ICD-10 - M65.352) Oct, Left wrist pain (ICD-10 - M25.532) We performed a 1/1cc marcaine / kenalog cortisone injection into the ulnar wrist area under sterile technique. Patient tolerated the injection well without adverse reaction. [facility] Other 06-27-2023 Evaluation note* Encounter Date Diagnosis Assessment Notes Treatment Notes Treatment Clinical Notes Aug, 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 (ICD-10 - M72.0) Aug, Arthritis of carpometacarpal (CMC) joint of left thumb (ICD-10 - M18.12) Aug, Trigger finger, left index finger (ICD-10 - M65.322) Aug, Trigger finger, left ring finger (ICD-10 - M65.342) Aug, Trigger little finge r of left hand (ICD-10 - M65.352) [facility] Other 05-12-2023 Evaluation note* Encounter Date Diagnosis Assessment Notes Treatment Notes Treatment Clinical Notes July, Wellness examination (ICD-10 - Z00.00) Healthy diet and exercise. Reviewed age-appropriate preventive testing recommended. July, Essential (primary) hypertension (ICD-10 - I10) This patient is instructed to consume a healthy, low-fat, low-salt diet. They are also encouraged to continue exercise to achieve/maintain a normal BMI. July, Controlled type 2 diabetes mellitus with hyperglycemia, without long-term current use of insulin (ICD-10 - E11.65) This patient is following a comprehensive diabetic treatment plan. They are checking their feet daily for calluses and nonhealing ulcers. They are being seen for yearly dilated eye examinations. Goals: SBP less than 130, LDL less than 100, FBS less than 140, AC and A1C less than 7%. They are checking their BS daily, will which are reviewed at the office visit. A1C: [ ] Microalbumin: [ ] Eye exam: [ ] Foot exam: [ ] July, MIGUEL A (generalized anxiety disorder) (ICD-10 - F41.1) Healthy diet and exercise. Keep active July, Morbid (severe) obesity due to excess calories (ICD-10 - E66.01) This patient has been instructed on a low-fat, high-fiber diet. They are instructed to reduce calories, portion sizes and snacks. It is recommended that they exercise for 30 minutes, 3-5 times weekly. July, Body mass index [BMI] 35.0-35.9, adult (ICD-10 - Z68.35) July, Screening PSA (prostate specific antigen) (ICD-10 - Z12.5) Yearly VISHAL and PSA July, Cigarette nicotine dependence in remission (ICD-10 - F17.211) Quit 2017 42 pyhx of tobacco use 1 ppd x 40 years [facility] Other 05-12-2023 Evaluation note* Encounter Date Diagnosis Assessment Notes Treatment Notes Treatment Clinical Notes July, Wellness examination (ICD-10 - Z00.00) Healthy diet and exercise. Reviewed age-appropriate preventive testing recommended. July, Essential (primary) hypertension (ICD-10 - I10) This patient is instructed to consume a healthy, low-fat, low-salt diet. They are also encouraged to continue exercise to achieve/maintain a normal BMI. July, Controlled type 2 diabetes mellitus with hyperglycemia, without long-term current use of insulin (ICD-10 - E11.65) This patient is following a comprehensive diabetic treatment plan. They are checking their feet daily for calluses and nonhealing ulcers. They are being seen for yearly dilated eye examinations. Goals: SBP less than 130, LDL less than 100, FBS less than 140, AC and A1C less than 7%. They are checking their BS daily, will which are reviewed at the office visit. A1C: [ ] Microalbumin: [ ] Eye exam: [ ] Foot exam: [ ] July, MIGUEL A (generalized anxiety disorder) (ICD-10 - F41.1) Healthy diet and exercise. Keep active July, Morbid (severe) obesity due to excess calories (ICD-10 - E66.01) This patient has been instructed on a low-fat, high-fiber diet. They are instructed to reduce calories, portion sizes and snacks. It is recommended that they exercise for 30 minutes, 3-5 times weekly. 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 This appears to Dupuytren's. We discussed the cause of this condition and the treatment options. We discussed stretching of the finger as well as massage of the palmar region. There is no obvious contracture. I recommend we watch this for now. We discussed the use of cortisone injection into the nodules of the hand can be helpful in relieving painful symptoms. We also discussed the option of Xiaflex injection which can help get rid of the problem. We could also try some compound topical medication to help with pain and inflammation. These may be used in reserve should condition worsen. Patient voiced understanding. Jun, Arthritis of carpometacarpal (CMC) joint of left thumb (ICD-10 - M18.12) The patient is suffering from degenerative arthritis involving the thumb CMC joint. We discussed the conservative treatment options which can be beneficial in relieving pain, including hand occupational therapy, wearing a brace, and non-steroidal anti-inflammatory medication. We discussed the use of occasional cortisone injections that can provide pain relief. I recommend patient use topical Voltaren gel for now. He voiced understanding and is agreeable to treatment plan. Jun, Trigger finger, left index finger (ICD-10 - M65.322) This appears to trigger finger. We discussed the cause of this condition and the treatment options. We discussed stretching of the finger as well as massage of the palmar MCP region. We discussed the use of cortisone injection into the palmar aspect of the hand at the trigger site can be helpful in relieving painful symptoms. We also discussed the option of surgical release which can eliminate the problem. We performed 2/1cc marcaine/40mg kenalog cortisone injection into the palmar aspect of the finger near at the A1 dl under sterile technique. The patient tolerated this well without complication. We discussed that the finger may feel numb and tingle for hours after this injection. Jun, Trigger finger, left ring finger (ICD-10 - M65.342) We performed 2/1cc marcaine/40mg kenalog cortisone injection into the palmar aspect of the finger near at the A1 dl under sterile technique. The patient tolerated this well without complication. We discussed that the finger may feel numb and tingle for hours after this injection. Jun, Trigger little finge r of left hand (ICD-10 - M65.352) We performed 2/1cc marcaine/40mg kenalog cortisone injection into the palmar aspect of the finger near at the A1 dl under sterile technique. The patient tolerated this well without complication. We discussed that the finger may feel numb and tingle for hours after this injection. [facility] Other Evaluation note* Diagnosis Onset Date Resolution Status Arthritis of carpometacarpal (CMC) joint of left thumb acute 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 acute Pain in left hand acute Trigger finger, left index finger acute Trigger finger, left ring finger acute [facility] Work Phone: Evaluation note* Diagnosis Onset Date Resolution Status Arthritis of carpometacarpal (CMC) joint of left thumb acute 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 acute Trigger finger, left index finger acute Trigger finger, left ring finger acute Cigarette nicotine dependence in remission acute Essential (primary) hypertension acute Nephrolithiasis acute Type 2 diabetes mellitus with hyperglycemia acute Wellness examination noneact graham [facility] Work Phone: Evaluation note* Diagnosis Onset Date Resolution Status Cigarette nicotine dependence in remission acute Essential (primary) hypertension acute Nephrolithiasis acute Obesity acute Screening PSA (prostate specific antigen) acute Type 2 diabetes mellitus with hyperglycemia acute Wellness examination noneact graham Arthritis of carpometacarpal (CMC) joint of left thumb acute 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 acute Pain in left hand acute Trigger finger, left index finger acute Trigger finger, left ring finger acute [facility] Work Phone: Evaluation note* Diagnosis Onset Date Resolution Status Arthritis of carpometacarpal (CMC) joint of left thumb acute 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 acute Pain in left hand acute Trigger finger, left index finger acute Trigger finger, left ring finger acute Cigarette nicotine dependence in remission acute Essential (primary) hypertension acute Nephrolithiasis acute Obesity acute Type 2 diabetes mellitus with hyperglycemia acute [facility] Work Phone: Evaluation note* Diagnosis Onset Date Resolution Status Cigarette nicotine dependence in remission acute Essential (primary) hypertension acute Nephrolithiasis acute Obesity acute Type 2 diabetes mellitus with hyperglycemia acute Arthritis of carpometacarpal (CMC) joint of left thumb acute 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 acute Left wrist tendonitis acute Pain in left hand acute Trigger finger, left index finger acute Trigger finger, left ring finger acute [facility] Work Phone: History general Narrative - Reported* Type Description Date Medical History kidney stones Medical History anxiety Medical History pre diabetic Surgical History lithotripsy [facility] Other History general Narrative - Reported* Type Description Date Medical History kidney stones Medical History anxiety Medical History pre diabetic Medical History Arthritis of carpometacarpal (CM C) joint of left thumb Medical History Dupuytren's contracture of left hand Medical History Hyperplastic rectal polyp Medical History Tubular adenoma polyp of rectum Medical History Essential (primary) hypertension Medical History MIGUEL A (generalized anxiety disorde r) Medical History Controlled type 2 di abetes mellitus with hyperglycemia, without long-term current use of insulin Surgical History lithotripsy Surgical History COLONOSCOPY Hospitalization History SEE SURGICAL HX [facility] Other Summary Purpose Family History Relationship Condition Age at Onset Recorded Date/T yuli brother Calculus of kidney Unknown father Multiple myeloma Unknown Diabetes mellitus Unknown Not Specified Parkinson's disease Unknown sister Malignant neoplasm of lung Unknown father Unknown Not Specified Unknown sister Unknown Relationship Condition Age at Onset Recorded Date/T yuli brother Calculus of kidney Unknown father Multiple myeloma Unknown Diabetes mellitus Unknown mother Parkinson's disease Unknown sister Malignant neoplasm of lung Unknown father Unknown mother Unknown sister Unknown Relationship Condition Age at Onset Recorded Date/T yuli brother Calculus of kidney Unknown father Multiple myeloma Unknown Diabetes mellitus Unknown Unknown mother Parkinson's disease Unknown sister Malignant neoplasm of lung Unknown sister Unknown Advance Directives Advance Directive Response Recorded Date/ Time Advance Directives No September 30 11:29am Advance Directive Response Recorded Date/ Time Advance Directives No September 30 18 10:29am Chief Complaint and Reason for Visit Chief Complaint 4-6 Week Recheck 6 WEEKS Reason for Visit Arthritis of carpome tacarpal (CMC) joint of left thumb 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 Pain in left hand Trigger finger, left index finger Trigger finger, left ring finger Chief Complaint 6 WEEKS wellness Reason for Visit Arthritis of carpome tacarpal (CMC) joint of left thumb 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 Trigger finger, left index finger Trigger finger, left ring finger Cigarette nicotine dependence in remission Essential (primary) hypertension Nephrolithiasis Type 2 diabetes mellitus with hyperglycemia Wellness examination Chief Complaint wellness 3 months Reason for Visit Cigarette nicotine d ependence in remission Essential (primary) hypertension Nephrolithiasis Obesity Screening PSA (prostate specific antigen) Type 2 diabetes mellitus with hyperglycemia Wellness examination Arthritis of carpometacarpal (CMC) joint of left thumb 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 Pain in left hand Trigger finger, left index finger Trigger finger, left ring finger Chief Complaint 3 months 4 month f/u Reason for Visit Arthritis of carpome tacarpal (CMC) joint of left thumb 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 Pain in left hand Trigger finger, left index finger Trigger finger, left ring finger Cigarette nicotine dependence in remission Essential (primary) hypertension Nephrolithiasis Obesity Type 2 diabetes mellitus with hyperglycemia Chief Complaint 4 month f/u M79.642 - Pain in left hand 3 MOS WITH XRAYS LEFT HAND Reason for Visit Cigarette nicotine d ependence in remission Essential (primary) hypertension Nephrolithiasis Obesity Type 2 diabetes mellitus with hyperglycemia Arthritis of carpometacarpal (CMC) joint of left thumb 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 Left wrist tendonitis Pain in left hand Trigger finger, left index finger Trigger finger, left ring finger Chief Complaint Admit Date M79.642 - Pain in left hand January 8:03am 3 MOS WITH XRAYS LEFT HAND January 22, 2024 11:06am OP SP INCREASED LT HAND PAIN March 10:37am Reason for Visit Admit Date Arthritis of carpometacarpal (CMC) joint of left thumb January 22, 2024 11:06am 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 January 22, 2024 11:06am Left wrist tendonitis January 22, 2024 11:06am Pain in left hand January 22, 2024 1 1:06am Trigger finger, left index finger Novemb er 2023 11:06am Trigger finger, left ring finger Novembe r 2023 11:06am Arthritis of carpometacarpal (CMC) joint of left thumb April 05, 2024 10:37am 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 April 05, 2024 10:37am Left wrist tendonitis April 05, 2024 10:37am Pain in left hand April 05, 2024 1 0:37am Trigger finger, left index finger Januar y 2024 10:37am Chief Complaint Admit Date M79.642 - Pain in left hand January 8:03am 3 MOS WITH XRAYS LEFT HAND January 22, 2024 11:06am OP SP INCREASED LT HAND PAIN March 10:37am 4 month f/u April 14, 2024 1 0:30am Reason for Visit Admit Date Arthritis of carpometacarpal (CMC) joint of left thumb January 22, 2024 11:06am 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 January 22, 2024 11:06am Left wrist tendonitis January 22, 2024 11:06am Pain in left hand January 22, 2024 1 1:06am Trigger finger, left index finger Novemb er 2023 11:06am Trigger finger, left ring finger Novembe r 2023 11:06am Arthritis of carpometacarpal (CMC) joint of left thumb April 05, 2024 10:37am 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 April 05, 2024 10:37am Left wrist tendonitis April 05, 2024 10:37am Pain in left hand April 05, 2024 1 0:37am Trigger finger, left index finger Januar y 2024 10:37am Cigarette nicotine dependence in remissi on April 14, 2024 10:30am Essential (primary) hypertension April 14, 2024 10:30am Nephrolithiasis April 14, 2024 1 0:30am Obesity April 14, 2024 1 0:30am Type 2 diabetes mellitus with hyperglyce denisha April 14, 2024 10:30am Additional Source Comments REASON FOR VISIT (unrecogniz ed section and content) Left Hand DupuytrensANNUAL W ELLNESSANNUAL WELLNESSRecheck Left HandRecheck Left ThumbRecheck Left HandNo InformationRecheck Left Hand And Wrist (unrecognized sect ion and content) No Status Records FoundNo Status Records Found INFORMATION SOURCE (unrecogn ized section and content) DATE CREATED AUTHOR 08/02/2022 [facility] DATE CREATED AUTHOR AUTHOR'S ORGANIZ ATION 01/24/2024 [facility] Care Teams (unrecognized sec tion and content) Team Status: Active Member Role Status Willie Lundberg DO Primary Care Provider Active Team Status: Inactive Member Role Status Dates Cedric Lundberg DO Primary Care Provider Active Start: January 22, 2024 End: January 22, 2024 Talya Mcnamara MD Attending Provider Active Start: January 22, 2024 End: January 22, 2024 Team Status: Inactive Member Role Status Dates Cedric Lundberg DO Primary Care Provider Active Start: April 05, 2024 End: April 05, 2024 Talya Mcnamara MD Attending Provider Active Start: April 05, 2024 End: April 05, 2024 Team Status: Active Member Role Status Dates Cedric Lundberg DO Primary Care Provide r, Attending Provider Active Start: December 09, 2023 Team Status: Inactive Member Role Status Dates Cedric Lundberg DO Primary Care Provide r, Attending Provider Active Start: December 14, 2023 End: December 14, 2023 Team Status: Active Member Role Status Dates Cedric Lundberg DO Primary Care Provider Active Start: January 22, 2024 Talya Mcnamara MD Attending Provider Active Start: January 22, 2024 Team Status: Inactive Member Role Status Willie Mcnamara MD Attending Provider Active Start: April 21, 2023 End: April 21, 2023 Team Status: Inactive Member Role Status Willie Cedric Lundberg DO Primary Care Provider Active Start: July 14, 2023 End: July 14, 2023 Talya Mcnamara MD Attending Provider Active Start: July 14, 2023 End: July 14, 2023 Team Status: Inactive Member Role Status Willie Cedric Lundberg DO Primary Care Provide r, Attending Provider Active Start: 2023 End: 2023 Team Status: Active Member Role Status Willie Cedric Lundberg DO Primary Care Provide r, Attending Provider Active Start: August 26, 2023 Team Status: Inactive Member Role Status Willie Cedric Lundberg DO Primary Care Provider Active Start: October 13, 2023 End: October 13, 2023 Talya Mcnamara MD Attending Provider Active Start: October 13, 2023 End: October 13, 2023 Team Status: Inactive Member Role Status Willie Lundberg Primary Care Provide r, Attending Provider Active Start: April 14, 2024 End: April 14, 2024 Goals (unrecognized section and content) Goals may be documented in a n alternate section FOR RECORDS PERTAINING TO PATIENTS WHO ARE OR HAVE BEEN ENROLLED IN A CHEMICAL DEPENDENCY/SUBSTANCEABUSE PROGRAM, SOME INFORMATION MAY BE OMITTED. This clinical summary was aggregated from multiple sources. Caution should be exercised in using it in the provision of clinical care. This summary normalizes information from multiple sources, and as a consequence, information in this document may materially change the coding, format and clinical context of patient data. In addition, data may be omitted in some cases. CLINICAL DECISIONS SHOULD BE BASED ON THE PRIMARY CLINICAL RECORDS. [facility] [employer] provides no warranty or guarantee of the accuracy or completeness of information in this document.
[2024-05-03 17:08] LABS: Estimated Average Glucose 220 mg/dL; Glycohemoglobin A1C 9.3 % (4.5-6.2)
== END 2024-05-03 16:39 | disposition home or self-care (01) ==
LOC: LAB 16:40
PROVIDERS: PCP Internal Medicine; Visit Provider Internal Medicine
DX: E11.65 Type 2 diabetes mellitus with hyperglycemia (principal)
CPT/HCPCS: 36415; 83036

== ENCOUNTER 2024-08-17 09:08 | Outpatient (OUT) | payer BC, SELFPAY ==
--- OUTSIDE RECORDS SUMMARY | 2024-08-17 09:31 | XMS_ITS | CCD ---
Author Organization [facility] Care Team Providers Care Portrait Photographer Name Role Phone Talya Mcnamara Cedric Lundberg JADIEL, DR STEELE Admitting Unavailable JADIEL, DR STEELE Attending Unavailable JADIEL, DR STEELE Primary Care Unavailable JADIEL, DR STEELE Consulting Unavailable JADIEL, DR STEELE Admitting Unavailable JADIEL, DR STEELE Attending Unavailable JADIEL, DR STEELE Primary Care Unavailable JADIEL, DR STEELE Consulting DO Cedric Dumas Primary Care Provider MD Talya Mcnamara Attending Provider Talya Mcnamara Attending Unavailable Talya Mcnamara Admitting Unavailable Cedric Lundberg Primary Care Cedric Dumas DO Primary Care Provider Talya Mcnamara MD Attending Provider Medications Current Medications Medication Drug Class(es) Dates Sig (Normalized) Sig (Original) [id number] 200 actuat albuterol 0.09 mg/actuat metered dose inhaler (1 source) beta2-Adrenergic Agonist Start: 04-14-2024 take 1 puff(s) by inhalation four times daily as needed for wheezing Albuterol Sulfate 90 mcg/actuation HFA aerosol inhaler Active 2 PUFF INHALATION Four times daily as needed for shortness of breath or wheezing 8.5 April 14, 2024 1:00am allopurinol 300 mg oral tablet (20 sources) Xanthine Oxidase Inhibitor Start: 09-08-2023 End: 02-29-2024 take 1 tablet by mouth once daily Allopurinol 300 mg tablet Active 0 .ROUTE .COMPLEX 180 February 29, 2024 5:58pm TAKE 1 TABLET BY MOUTH DAILY Start: 09-08-2023 take 1 tablet by carmen th once daily Allopurinol Active 0 .ROUTE .COMPLEX 90 September 08, 2023 11:23am TAKE 1 TABLET BY MOUTH DAILY Start: 09-07-2020 End: 09-08-2023 take 1 tablet by mouth once daily Allopurinol 300 mg tablet Discontinued 300 MG PO Daily September 07, 2020 12:00am September 08, 2023 11:23am Allopurinol Acti ve doxycycline hyclate 100 mg oral capsule (1 source) Tetracycline-class Drug Start: 04-14-2024 take 1 capsule by mouth twice daily Doxycycline Hyclate 100 mg capsule Active 100 MG PO Twice daily April 14, 2024 1:00am glimepiride 4 mg oral tablet (20 sources) Sulfonylurea Start: 05-03-2024 End: 05-27-2024 take 1 tablet by mouth once daily Glimepiride 4 mg tablet Active 4 MG PO Daily 90 May 27, 2024 12:13pm Start: 12-14-2023 End: 05-03-2024 take 3 mg by mouth once daily Glimepiride 2 mg tablet Discontinued 3 MG PO Daily 135 December 14, 2023 10:44am May 03, 2024 6:57pm Start: 12-14-2023 take 3 mg by mouth once daily Glimepiride Active 3 MG PO Daily 135 December 14, 2023 10:44am Start: 11-30-2023 End: [...] tablet Discontinued 2 MG PO Daily September 07, 2020 12:00am November 30, 2023 8:39am hydroCHLOROthiazide 50 mg oral tablet (20 sources) Thiazide Diuretic Start: 05-31-2024 take 2 tablets by mouth once daily Hydrochlorothiazide 50 mg tablet Active 0 .ROUTE .COMPLEX 180 May 31, 2024 1:10pm TAKE 2 TABLETS BY MOUTH DAILY Start: 2023 End: 2023 take 3 tablets by mouth once daily Hydrochlorothiazide 50 mg tablet Discontinued 150 MG PO Daily 2023 10:36am 2023 10:37am Start: 2023 End: 2023 take 150 mg by mouth once daily Hydrochlorothiazide Discontinued 150 MG PO Daily 2023 10:36am 2023 10:37am Start: 09-07-2020 End: 05-31-2024 take 2 tablets by mouth once daily Hydrochlorothiazide 50 mg tablet Discontinued 100 MG PO Daily 180 90 2023 10:38am May 31, 2024 1:10pm Start: 09-07-2020 End: 2023 take 100 mg by mouth once daily Hydrochlorothiazide Discontinued 100 MG PO Daily 2023 10:37am 2023 10:38am take 1 tablet by carmen th every twenty-four hours hydroCHLOROthiazide 50 MG 1 tablet in the morning Orally Once a day for 90 days Active hydroCHLOROthiaz astrid Active metFORMIN hydrochloride 1000 mg oral tablet (20 sources) Biguanide Start: 11-17-2023 take 1 tablet by mouth twice daily at mealtime Metformin 1,000 mg tablet Active 0 .ROUTE .COMPLEX 60 November 17, 2023 8:46am TAKE 1 TABLET BY MOUTH TWICE DAILY WITH FOOD Start: 08-27-2023 End: 11-17-2023 take 1 tablet by mouth twice daily Metformin 1,000 mg tablet Discontinued 1000 MG PO Twice daily 60 30 August 27, 2023 12:00am November 17, 2023 8:47am Start: 09-07-2020 End: 08-27-2023 take 2 tablets by mouth once daily Metformin 1,000 mg tablet Discontinued 2000 MG PO Daily September 07, 2020 12:00am August 27, 2023 12:34pm Start: 09-07-2020 End: 08-27-2023 take 2000 mg by mouth once daily Metformin Discontinue d 2000 MG PO Daily September 07, 2020 12:00am August 27, 2023 12:34pm take 1 tablet by carmen twice daily at mealtime metFORMIN HCl 1000 MG TAKE 1 TABLET BY MOUTH TWICE DAILY WITH FOOD Active potassium chloride 10 meq extended release oral tablet (20 sources) Start: 08-27-2023 End: 11-30-2023 take 1 tablet by mouth once daily Potassium Chloride 10 mEq tablet extended release Active 0 .ROUTE .COMPLEX 150 November 30, 2023 8:39am TAKE 1 TABLET BY MOUTH DAILY Start: 08-27-2023 End: 08-27-2023 Potassium Chloride (Klor-Con 10) 10 mEq tablet extended release Discontinued 10 MEQ PO Daily 30 August 27, 2023 2:00pm August 27, 2023 4:58pm sertraline 100 mg oral tablet (20 sources) Serotonin Reuptake Inhibitor Start: 09-04-2023 End: 02-29-2024 take 1 tablet by mouth once daily Sertraline 100 mg tablet Active 0 .ROUTE .COMPLEX 270 February 29, 2024 5:59pm TAKE 1 & 1/2 (ONE AND ONE-HALF) TABLETS BY MOUTH DAILY Start: 06-01-2023 End: 09-04-2023 Sertraline 100 mg tablet Dis continued MG PO June 01, 2023 12:00am September 04, 2023 [...] for 90 Active Sertraline HCl A ctive SITagliptin 50 mg oral tablet (1 source) Dipeptidyl Peptidase 4 Inhibitor Start: 06-14-2024 take 1 tablet by mouth once daily Sitagliptin Phosphate (Januvia) 50 mg tablet Active 50 MG PO Daily June 14, 2024 12:00am Completed/Discontinued Medications Medication Drug Class(es) Dates Sig (Normalized) Sig (Original) alogliptin 25 mg oral tablet (7 sources) Start: 08-27-2023 End: 06-14-2024 take 1 tablet by mouth once daily in the morning Alogliptin 25 mg tablet Discontinued 25 MG PO Every morning August 27, 2023 12:00am June 14, 2024 12:47pm amoxicillin 875 mg / clavulanate 125 mg oral tablet (12 sources) Penicillin-class Antibacterial Start: 06-01-2023 End: 07-14-2023 take 1 tablet by mouth every twelve hours Amoxicillin-Pot Clavulanate 875-125 mg tablet Discontinued 1 TAB PO Every 12 hours June 01, 2023 12:00am July 14, 2023 9:59am FreeTextSi tablet Orally every 12 hrs; Note: Source Status: Taking; Refills: 0; Qty: 14 Tablet; Provider: Jadiel Valladares Start: 02-10-2023 take 1 tablet by carmen th every twelve hours Amoxicillin-Pot Clavulanate 875-125 MG 1 tablet Orally every 12 hrs for 7 days Jan, Active metFORMIN hydrochloride 1000 mg / SITagliptin 50 mg oral tablet (14 sources) Biguanide, Dipeptidyl Peptidase 4 Inhibitor Start: 08-27-2023 End: 08-27-2023 take 1 tablet by mouth twice daily Sitagliptin Phos-Metformin (Marumet) 50-1,000 mg tablet Discontinued 1 TAB PO Twice daily 60 August 27, 2023 2:00pm August 27, 2023 10:22pm triamcinolone acetonide 40 mg/ml injectable suspension (20 sources) Corticosteroid Start: 07-08-2022 Kenalog-40 30 Roger, 2024 20 mg Problems Active Problems Problem Classification Problem Date Documented Date Episodic/Chronic Acute bronchitis (1 source) Acute bronchitis due to other specified organisms; Translations: [Acute bronchitis] 04-14-2024 Episodic Anal and rectal conditions (8 sources) Rectal polyp; Translations: [Hyperplastic rectal polyp] Episodic Anxiety disorders (11 sources) Generalized anxiety disorder; Translations: [Generalized anxiety disorder] Chronic Bacterial infection; unspecified site (1 source) Bacterial infectious disease; Translations: [Other specified bacterial agents as the cause of diseases classified elsewhere] Episodic Calculus of urinary tract (17 sources) H/O: urinary stone; Translations: [Personal history of urinary calculi] 08-12-2023 Episodic Chronic obstructive pulmonary disease and bronchiectasis (1 source) Chronic obstructive pulmonary disease with (acute) exacerbation; Translations: [Obstructive chronic bronchitis with (acute) exacerbation] 04-14-2024 Chronic Diabetes mellitus with complications (20 sources) Hyperglycemia [...] Onset: 03-06-2017 Chronic Other connective tissue disease (17 sources) 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; Translations: [Palmar fascial fibromatosis [Dupuytren]] 06-01-2023 Episodic Other connective tissue disease (16 sources) Palmar fascial fibromatosis [Dupuytren]; 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] Episodic Other connective tissue disease (16 sources) Trigger finger, left index finger; Translations: [...] index finger] Episodic Other connective tissue disease (13 sources) Pain in left hand; Translations: [Pain in limb] Onset: 01-22-2024 Episodic Other connective tissue disease (8 sources) Hand pain; Translations: [Pain in left hand] 06-01-2023 Episodic Other connective tissue disease (18 sources) Triggering of digit; Translations: [Trigger finger, left index finger] 06-01-2023 Episodic Other connective tissue disease (5 sources) Tendonitis of left wrist; Translations: [Other enthesopathies, not elsewhere classified] 01-22-2024 Episodic Other connective tissue disease (7 sources) Other enthesopathies, not elsewhere classified; Translations: [...] Chronic Other nutritional; endocrine; and metabolic disorders (8 sources) Obesity; Translations: [Obesity, unspecified] 2023 Chronic Other nutritional; endocrine; and metabolic disorders (2 sources) Obese class II; Translations: [Body mass index 35.0-35.9, adult] Onset: 09-14-2015 Chronic Other nutritional; endocrine; and metabolic disorders (6 sources) Obesity, unspecified; Translations: [Obesity, unspecified] 2023 Chronic Other screening for suspected conditions (not mental disorders or infectious disease) (20 sources) Encounter for screening for malignant neoplasm [...] Test Name Value Interpretation Reference Range Facility Glucose mean value [Mass/vol ume] in Blood Estimated from glycated hemoglobinon 05-03-2024 Average glucose Estimated from glycated hemoglobin (Bld) [Mass/Vol] Glucose mean value [Mass/volume] in Blood Estimated from glycated hemoglobin [facility] Hemoglobin A1c percentageon 05-03-2024 HbA1c (Bld) [Mass fraction] Hemoglobin A1c percentage High 4.5-6.2 [facility] Comment on above: ADA RECOMMENDED LIMI T 4.0 - 6.0ADA THERAPEUTIC TARGET < 7.0ACTION SUGGESTED> 7.0 XR hand LT min 3V*on 024 XR hand LT min 3V* [facility] [address] [place] [address] XRay Report Signed Patient: Sharan Clemente MR#: [id number] : 1960 Acct:[id number] Age/Sex: 63 / M ADM Date: 01/22/24 Loc: [facility] Room: Type: [facility] Attending Dr: Talya Mcnamara MD Copies to: [...] Katie Castro M.D.01/22/2024 2:07 PM Dictation Location: [facility]-- Transcribed By: [facility] 01/22/241406 Dictated By: Katie Castro MD 01/22/241404 Signed By: 01/22/24 140 Normal [facility] Estimated glomerular filtrat ion rate (GFR) non- Americanon 12-09-2023 GFR/1.73 sq M.predicted among non-blacks MDRD (S/P/Bld) [Vol rate/Area] mL/min/{1.73_m2} >=60 [facility] Glucose mean value [Mass/vol ume] in Blood Estimated from glycated hemoglobinon 12-09-2023 Average glucose Estimated from glycated hemoglobin (Bld) [Mass/Vol] 180 mg/dL [facility] Laboratory - Chemistry and C hemistry - challengeon 12-09-2023 Calcium [Mass/Vol] 9.1 mg/dL 8.5-10.1 [facility] Chloride [Moles/Vol] 102 mmol/L 98-107 [facility] CO2 [Moles/Vol] 32.3 mmol/L High 21.0-32.0 [facility] Creatinine [Mass/Vol] 0.91 mg/dL 0.70-1.30 [facility] GFR/1.73 sq M.predicted MDRD (S/P/Bld) [Vol rate/Area] mL/min/{1.73_m2} >=60 [facility] Glucose [Mass/Vol] 188 mg/dL High 74-106 [facility] Potassium [Moles/Vol] 3.4 mmol/L Low 3.5-5.1 [facility] Sodium [Moles/Vol] 141 mmol/L 136-145 [facility] Urea nitrogen [Mass/Vol] 8.0 mg/dL 7.0-18.0 [facility] Urea nitrogen/Creatinine [Mass ratio] 8.8 mg/mg [facility] Laboratory - Hematology and Cell countson 12-09-2023 HbA1c (Bld) [Mass fraction] 7.9 % High 4.5-6.2 [facility] Comment on above: ADA RECOMMENDED LIMI T 4.0 - 6.0ADA THERAPEUTIC TARGET < 7.0ACTION SUGGESTED> 7.0 Serum or plasma anion gap de terminationon 12-09-2023 Anion gap [Moles/Vol] 10.1 mmol/L [facility] Basophils Auto (Bld) [#/Vol] on 08-26-2023 Basophils (Bld) [#/Vol] 0.1 10 3/uL 0.0-0.1 [facility] Basophils/100 WBC Auto (Bld) on 08-26-2023 Basophils/100 WBC (Bld) 1.0 % 0.2-2.0 [facility] Cholesterol in LDL Calc [Mas s/Vol]on 08-26-2023 Cholesterol in LDL [Mass/Vol] 90.0 mg/dL [facility] Comment on above: <100 mg/dl [id number] 0-129 mg/dl NEAR OR ABOVE [id number] mg/dl BORDERLINE [id number] mg/dl HIGH>190 mg/dl VERY HIGH Cholesterol in VLDL Calc [Ma ss/Vol]on 08-26-2023 Cholesterol in VLDL [Mass/Vol] 40.0 mg/dL [facility] Eosinophils/100 WBC Auto (Bl d)on 08-26-2023 Eosinophils/100 WBC (Bld) 3.9 % 0.9-7.0 [facility] Erythrocyte distribution wid th Auto (RBC) [Ratio]on 08-26-2023 Erythrocyte distribution width (RBC) [Ratio] 11.8 % 11.0-15.0 [facility] Estimated glomerular filtrat ion rate (GFR) non- Americanon 08-26-2023 GFR/1.73 sq M.predicted among non-blacks MDRD (S/P/Bld) [Vol rate/Area] mL/min/{1.73_m2} >=60 [facility] Globulin Calc (S) [Mass/Vol] on 08-26-2023 Globulin (S) [Mass/Vol] 3.7 g/dL [facility] Glucose mean value [Mass/vol ume] in Blood Estimated from glycated hemoglobinon 08-26-2023 Average glucose Estimated from glycated hemoglobin (Bld) [Mass/Vol] 203 mg/dL [facility] Hematocrit Auto (Bld) [Volum e fraction]on 08-26-2023 Hematocrit (Bld) [Volume fraction] 44.0 % 42.0-54.0 [facility] Hemoglobin [Mass/volume] in Bloodon 08-26-2023 Hemoglobin (Bld) [Mass/Vol] 15.0 g/dL 14.0-18.0 [facility] Laboratory - Chemistry and C hemistry - challengeon 08-26-2023 Albumin [Mass/Vol] 4.0 g/dL 3.4-5.0 [facility] ALP [Catalytic activity/Vol] 86 U/L 46-116 [facility] ALT [Catalytic activity/Vol] 31 U/L 16-63 [facility] AST [Catalytic activity/Vol] 16 U/L 15-37 [facility] Bilirubin [Mass/Vol] 0.6 mg/dL 0.2-1.0 [facility] Calcium [Mass/Vol] 9.3 mg/dL 8.5-10.1 [facility] Chloride [Moles/Vol] 100 mmol/L 98-107 [facility] Cholesterol [Mass/Vol] 178 mg/dL <=200 [facility] Cholesterol in HDL [Mass/Vol] 48 mg/dL 40-60 [facility] Comment on above: > or =60 mg/dl - LOW CARDIOVASCULAR RISK<40 mg/dl - HIGH CARDIOVASCULAR RISK CO2 [Moles/Vol] 32.4 mmol/L High 21.0-32.0 [facility] Creatinine [Mass/Vol] 1.00 mg/dL 0.70-1.30 [facility] GFR/1.73 sq M.predicted MDRD (S/P/Bld) [Vol rate/Area] mL/min/{1.73_m2} >=60 [facility] Glucose [Mass/Vol] 197 mg/dL High 74-106 [facility] Potassium [Moles/Vol] 3.1 mmol/L Low 3.5-5.1 [facility] Protein [Mass/Vol] 7.7 g/dL 6.4-8.2 [facility] Sodium [Moles/Vol] 141 mmol/L 136-145 [facility] Triglyceride [Mass/Vol] 200 mg/dL High <=150 [facility] Urea nitrogen [Mass/Vol] 12.0 mg/dL 7.0-18.0 [facility] Urea nitrogen/Creatinine [Mass ratio] 12.0 mg/mg [facility] Laboratory - Hematology and Cell countson 08-26-2023 HbA1c (Bld) [Mass fraction] 8.7 % High 4.5-6.2 [facility] Comment on above: ADA RECOMMENDED LIMI T 4.0 - 6.0ADA THERAPEUTIC TARGET < 7.0ACTION SUGGESTED> 7.0 Immature granulocytes/100 WBC (Bld) 0.3 % 0.0-0.5 [facility] Leukocytes [#/volume] correc renato for nucleated erythrocytes in Blood by Automated counon 08-26-2023 WBC corrected for nucl RBC Auto (Bld) [#/Vol] 7.7 10 3/uL 4.0-11.0 [facility] Lymphocytes Auto (Bld) [#/Vo l]on 08-26-2023 Lymphocytes (Bld) [#/Vol] 2.6 10 3/uL 1.2-3.8 [facility] Lymphocytes/100 WBC Auto (Bl d)on 08-26-2023 Lymphocytes/100 WBC (Bld) 33.3 % 20.5-60.0 [facility] MCH Auto (RBC) [Entitic mass ]on 08-26-2023 MCH (RBC) [Entitic mass] 30.9 pg 25.9-34.0 [facility] MCHC Auto (RBC) [Mass/Vol]on 08-26-2023 MCHC (RBC) [Mass/Vol] 34.1 g/dL 29.9-35.2 [facility] MCV Auto (RBC) [Entitic vol] on 08-26-2023 MCV (RBC) [Entitic vol] 90.5 fL 80.0-94.0 [facility] Monocytes Auto (Bld) [#/Vol] on 08-26-2023 Monocytes (Bld) [#/Vol] 0.6 10 3/uL 0.3-0.8 [facility] Monocytes/100 WBC Auto (Bld) on 08-26-2023 Monocytes/100 WBC (Bld) 7.8 % 1.7-12.0 [facility] Neutrophils Auto (Bld) [#/Vo l]on 08-26-2023 Neutrophils (Bld) [#/Vol] 4.2 10 3/uL 1.4-6.5 [facility] Neutrophils/100 WBC Auto (Bl d)on 08-26-2023 Neutrophils/100 WBC (Bld) 53.7 % 43.0-75.0 [facility] No Panel Informationon 08-25 Eosinophils # (Auto) 0.3 10 3/uL 0.0-0.7 [facility] Immature Granulocyte # (Auto) 0.02 10 3/uL 0.00-0.03 [facility] Nucleated Red Blood Cells/100 WBC 0 [facility] Prostate Specific Antigen Screen 1.46 ng/mL <=4.00 [facility] Platelet mean volume Auto (B ld) [Entitic vol]on 08-26-2023 Platelet mean volume (Bld) [Entitic vol] 9.9 fL 9.5-13.5 [facility] Platelets Auto (Bld) [#/Vol] on 08-26-2023 Platelets (Bld) [#/Vol] 386 10 3/uL 150-450 [facility] RBC Auto (Bld) [#/Vol]on RBC (Bld) [#/Vol] 4.86 10 6/uL 4.70-6.10 [facility] Serum or plasma albumin/glob ulin mass ratioon 08-26-2023 Albumin/Globulin [Mass ratio] 1.1 {ratio} [facility] Serum or plasma anion gap de terminationon 08-26-2023 Anion gap [Moles/Vol] 11.7 mmol/L [facility] Serum or plasma total choles terol/high density lipoprotein (HDL) cholesterol mass yamila 08-26-2023 Cholesterol.total/Ch olesterol in HDL [Mass ratio] 3.7 {ratio} [facility] Comment on above: 3.3 - 4.4 LOW RISK4. 4 - 7.1 AVERAGE RISK7.1 - 11.0 MODERATE RISK>11.0 HIGH RISK CBC AUTO DIFFon 08-01-2022 BASO # 0.1 103/ul Normal 0.0-0.1 [facility] Comment on above: Performed By: #### C BC #### [facility] [address] [place] [address] Dr. Wendi Martinez Basophils/100 WBC (Bld) 0.9 % Normal 0.2-2.0 [facility] Comment on above: Performed By: #### C BC #### [facility] [address] [place] [address] Dr. Wendi Martinez EO # 0.3 103/ul Normal 0.0-0.7 [facility] Comment on above: Performed By: #### C BC #### [facility] [address] [place] [address] Dr. Wendi Martinez Eosinophils/100 WBC (Bld) 3.8 % Normal 0.9-7.0 [facility] Comment on above: Performed By: #### C BC #### [facility] [address] [place] [address] Dr. Wendi Martinez Erythrocyte distribution width (RBC) [Ratio] 12.1 % Normal 11.0-15.0 [facility] Comment on above: Performed By: #### C BC #### [facility] [address] [place] [address] Dr. Wendi Martinez Hematocrit (Bld) [Volume fraction] 45.6 % Normal 42.0-54.0 [facility] Comment on above: Performed By: #### C BC #### [facility] [address] [place] [address] Dr. Wendi Martinez Hemoglobin (Bld) [Mass/Vol] 15.5 g/dL Normal 14.0-18.0 [facility] Comment on above: Performed By: #### C BC #### [facility] [address] [place] [address] Dr. Wendi Martinez IG # 0.02 10e3/ul Normal 0.00-0.03 [facility] Comment on above: Performed By: #### C BC #### [facility] [address] [place] [address] Dr. Wendi Martinez IG % 0.3 % Normal 0.0-0.5 [facility] Comment on above: Performed By: #### C BC #### [facility] [address] [place] [address] Dr. Wendi Martinez LYMPH # 2.7 103/ul Normal 1.2-3.8 [facility] Comment on above: Performed By: #### C BC #### [facility] [address] [place] [address] Dr. Wendi Martinez Lymphocytes/100 WBC (Bld) 35.1 % Normal 20.5-60.0 [facility] Comment on above: Performed By: #### C BC #### [facility] [address] [place] [address] Dr. Wendi Martinez MANUAL DIFF REQ NO Normal [facility] Comment on above: Performed By: #### C BC #### [facility] [address] [place] [address] Dr. Wendi Martinez MCH (RBC) [Entitic mass] 30.8 pg Normal 25.9-34.0 [facility] Comment on above: Performed By: #### C BC #### [facility] [address] [place] [address] Dr. Wendi Martinez MCHC (RBC) [Mass/Vol] 34.0 g/dL Normal 29.9-35.2 [facility] Comment on above: Performed By: #### C BC #### [facility] [address] [place] [address] Dr. Wendi Martinez MCV (RBC) [Entitic vol] 90.7 fL Normal 80.0-94.0 [facility] Comment on above: Performed By: #### C BC #### [facility] [address] [place] [address] Dr. Wendi Martinez MONO # 0.7 103/ul Normal 0.3-0.8 [facility] Comment on above: Performed By: #### C BC #### [facility] [address] [place] [address] Dr. Wendi Martinez Monocytes/100 WBC (Bld) 9.3 % Normal 1.7-12.0 [facility] Comment on above: Performed By: #### C BC #### [facility] [address] [place] [address] Dr. Wendi Martinez NEUT # 3.8 103/ul Normal 1.4-6.5 [facility] Comment on above: Performed By: #### C BC #### [facility] [address] [place] [address] Dr. Wendi Martinez Neutrophils/100 WBC (Bld) 50.6 % Normal 43.0-75.0 [facility] Comment on above: Performed By: #### C BC #### [facility] [address] [place] [address] Dr. Wenid Martinez Platelet mean volume (Bld) [Entitic vol] 9.9 fL Normal 9.5-13.5 [facility] Comment on above: Performed By: #### C BC #### [facility] Laboratory [address] [place] [address] Dr. Wendi Martinez PLT 345 103/ul Normal 150-450 [facility] Comment on above: Performed By: #### C BC #### [facility] Laboratory [address] [place] [address] Dr. Wendi Martinez RBC 5.03 106/ul Normal 4.70-6.10 [facility] Comment on above: Performed By: #### C BC #### [facility] Laboratory [address] [place] [address] Dr. Wendi Martinez WBC 7.6 103/ul Normal 4.0-11.0 [facility] Comment on above: Performed By: #### C BC #### [facility] Laboratory [address] [address] [address] Wendi Martinez Complete Blood Count and Dif abdirashid 08-01-2022 Anisocytosis Ql (Bld) [employer] Other Basophilic stippling LM Ql (Bld) [employer] Other RBC morphology finding Nom (Bld) [employer] Other Complete Blood Count and Diff [employer] Other Comprehensive Metabolic Pane neftaly 08-01-2022 Albumin [Mass/Vol] 4.872718 g/dL 3.4-5.0 g/dL N [employer] Other Calcium [Mass/Vol] 9.7730771 mg/dL 8.5-10 .1 mg/dL [employer] Other CO2 [Moles/Vol] 30.91546818 mmol/L 21.0-3 2.0 mmol/L [employer] Other Creatinine [Mass/Vol] 0.69188055 mg/dL 0.70-1.30 mg/dL [employer] Other Potassium [Moles/Vol] 3.06587488 mmol/L Critically low 3.5-5.1 mmol/L [employer] Other Protein [Mass/Vol] 8.134979 g/dL Critically high 6.4-8.2 g /dL [employer] Other Urea nitrogen [Mass/Vol] 12.4315676 mg/dL 7.0-18.0 mg/dL [employer] Other Comprehensive Metabolic Panel see note [employer] Other Comprehensive Metabolic Panel 141 mmol/L 136-145 mmol/L [employer] Other Comprehensive Metabolic Panel 139 mg/dL Critically high 74-106 mg/dL [employer] Other Comprehensive Metabolic Panel >60 mL/min/1.73m2 >=60 mL/min/1.73m2 [employer] Other Comprehensive Metabolic Panel 0.6 mg/dL 0.2-1.0 mg/dL [employer] Other Comprehensive Metabolic Panel 4.2 g/dL [employer] Other Albumin/Globulin [Mass ratio] 1.0 {ratio} [employer] Other Comment on above: Performed By: #### L IPID, CMP #### [facility] Laboratory [address] [place] [address] Dr. Wendi Martinez ALP [Catalytic activity/Vol] 86 U/L 46-116 U/L [facility] [employer] Other Comment on above: Performed By: #### L IPID, CMP #### [facility] Laboratory [address] [place] [address] Dr. Wendi Martinez ALT [Catalytic activity/Vol] 40 U/L 16-63 U/L [employer] Other Comment on above: Performed By: #### L IPID, CMP #### [facility] Laboratory [address] [place] [address] Dr. Wendi Martinez Anion gap [Moles/Vol] 12.5 mmol/L [employer] Other Comment on above: Performed By: #### L IPID, CMP #### [facility] Laboratory [address] [place] [address] Dr. Wendi Martinez AST [Catalytic activity/Vol] 25 U/L 15-37 U/L [employer] Other Comment on above: Performed By: #### L IPID, CMP #### [facility] Laboratory [address] [place] [address] Dr. Wendi Martinez Chloride [Moles/Vol] 101 mmol/L 98-107 mmol/L [facility] [employer] Other Comment on above: Performed By: #### L IPID, CMP #### [facility] Laboratory [address] [address] [address] Wendi Martinez Urea nitrogen/Creatinine [Mass ratio] 12.5 mg/mg [employer] Other Comment on above: Performed By: #### L IPID, CMP #### [facility] Laboratory [address] [address] [address] Wendi Martinez GLYCOHEMOGLOBIN A1Con 2022 ADA RECOMMENDATION SEE BELOW Normal [facility] Comment on above: Result Comment: ADA RECOMMENDED LIMIT 4.0 - 6.0 ADA THERAPEUTIC TARGET < 7.0 ACTION SUGGESTED > 7.0 Performed By: #### A 1C #### [facility] Laboratory [address] [address] [address] Wendi Martinez Glucose [Mass/Vol] 154 mg/dL Normal [facility] Comment on above: Performed By: #### A 1C #### [facility] Laboratory [address] [place] [address] Dr. Wendi Martinez HbA1c (Bld) [Mass fraction] 7.0 % Critically high 4.5-6.2 [facility] Comment on above: Performed By: #### A 1C #### [facility] Laboratory [address] [address] [address] Wendi Martinez LIPID PROFILEon 08-01-2022 CHOL-HDL RATIO NORM SEE BELOW Normal [facility] Comment on above: Result Comment: 3.3 - 4.4 LOW RISK 4.4 - 7.1 AVERAGE RISK 7.1 - 11.0 MODERATE RISK >11.0 HIGH RISK Performed By: #### L IPID, CMP #### [facility] Laboratory [address] [place] [address] Dr. Wendi Martinez Cholesterol in LDL [Mass/Vol] 91.2 mg/dL Normal [facility] Comment on above: Performed By: #### L IPID, CMP #### [facility] Laboratory [address] [address] [address] Wendi Martinez HDL NORMAL > or = 60 mg/dl - LOW CARDIOVASCULAR RISK <40 mg/dl - HIGH CARDIOVASCULAR RISK Normal [facility] Comment on above: Performed By: #### L IPID, CMP #### [facility] Laboratory [address] [address] [address] Wendi Martinez LDL CALC NORMAL SEE BELOW Normal [facility] Comment on above: Result Comment: <100 mg/dl OPTIMAL 100 - 129 mg/dl NEAR OR ABOVE OPTIMAL 130 - 159 mg/dl BORDERLINE HIGH 160 - 189 mg/dl HIGH >190 mg/dl VERY HIGH Performed By: #### L IPID, CMP #### [facility] [address] [address] [address] Wendi Martinez VLDL CALC 14.8 mg/dL Normal [facility] Comment on above: Performed By: #### L IPID, CMP #### [facility] Laboratory [address] [address] [address] Wendi Martinez Lipid Panelon 08-01-2022 Lipid Panel > or = 60 mg/dl - LOW CARDIOVASCULAR RISK <40 mg/dl - HIGH CARDIOVASCULAR RISK [employer] Other Lipid Panel SEE BELOW [employer] Other Lipid Panel 91.2 mg/dL [employer] Other Lipid Panel 14.8 mg/dL [employer] Other Cholesterol [Mass/Vol] 167 mg/dL <=200 mg/dL [employer] Other Comment on above: Performed By: #### L IPID, CMP #### [facility] [address] [address] [address] Wendi Martinez Cholesterol in HDL [Mass/Vol] 61 mg/dL Critically high 40-60 mg/dL [employer] Other Comment on above: Performed By: #### L IPID, CMP #### [facility] [address] [address] [address] Wenid Martinez Cholesterol.total/Ch olesterol in HDL [Mass ratio] 2.7 {ratio} [employer] Other Comment on above: Performed By: #### L IPID, CMP #### [facility] [address] [address] [address] Wendi Martinez Triglyceride [Mass/Vol] 74 mg/dL <=150 mg/dL [employer] Other Comment on above: Performed By: #### L IPID, CMP #### [facility] [address] [address] [address] Wendi Martinez MICROALBUMIN, RAND URon 07-21 mALB <1.3 Normal <=30.0 [facility] Comment on above: Performed By: #### M ALBR #### [facility] Laboratory [address] [address] [address] Wendi Martinez PROF 14(COMP METB)on 023 Albumin [Mass/Vol] 4.3 g/dL Normal 3.4-5.0 [facility] Comment on above: Performed By: #### L IPID, CMP #### [facility] Laboratory [address] [place] [address] Dr. Wendi Martinez Bilirubin [Mass/Vol] 0.6 mg/dL Normal 0.2-1.0 [facility] Comment on above: Performed By: #### L IPID, CMP #### [facility] Laboratory [address] [address] [address] Wendi Martinez Calcium [Mass/Vol] 9.3 mg/dL Normal 8.5-10.1 [facility] Comment on above: Performed By: #### L IPID, CMP #### [facility] Laboratory [address] [address] [address] Wendi Martinez CO2 [Moles/Vol] 30.9 mmol/L Normal 21.0-32.0 [facility] Comment on above: Performed By: #### L IPID, CMP #### [facility] Laboratory [address] [address] [address] Wendi Martinez Creatinine [Mass/Vol] 0.96 mg/dL Normal 0.70-1.30 [facility] Comment on above: Performed By: #### L IPID, CMP #### [facility] Laboratory [address] [address] [address] Wendi Martinez EGFR-AF BARBADIAN >60 Normal >=60 [facility] Comment on above: Performed By: #### L IPID, CMP #### [facility] Laboratory [address] [address] [address] Wendi Martinez EGFR-NON AF BARBADIAN >60 Normal >=60 [facility] Comment on above: Performed By: #### L IPID, CMP #### [facility] Laboratory [address] [address] [address] Wendi Martinez Globulin (S) [Mass/Vol] 4.2 g/dL Normal [facility] Comment on above: Performed By: #### L IPID, CMP #### [facility] Laboratory [address] [address] [address] Wendi Martinez Glucose [Mass/Vol] 139 mg/dL Critically high 74-106 [facility] Comment on above: Performed By: #### L IPID, CMP #### [facility] [address] [address] [address] Wendi Martinez Potassium [Moles/Vol] 3.4 mmol/L Critically low 3.5-5.1 [facility] Comment on above: Performed By: #### L IPID, CMP #### [facility] Laboratory [address] [address] [address] Wendi Martinez Protein [Mass/Vol] 8.5 g/dL Critically high 6.4-8.2 [facility] Comment on above: Performed By: #### L IPID, CMP #### [facility] Laboratory [address] [address] [address] Wendi Martinez Sodium [Moles/Vol] 141 mmol/L Normal 136-145 [facility] Comment on above: Performed By: #### L IPID, CMP #### [facility] [address] [address] [address] Wendi Martinez Urea nitrogen [Mass/Vol] 12.0 mg/dL Normal 7.0-18.0 [facility] Comment on above: Performed By: #### L IPID, CMP #### [facility] [address] [address] [address] Wendi Martinez A1C with Estimated Average G luon 07-31-2022 A1C with Estimated Average Glu [employer] Other GLYCOHEMOGLOBIN A1Con 2021 ADA RECOMMENDATION SEE BELOW Normal [facility] Comment on above: Result Comment: ADA RECOMMENDED LIMIT 4.0 - 6.0 ADA THERAPEUTIC TARGET < 7.0 ACTION SUGGESTED > 7.0 Performed By: #### A 1C #### [facility] Laboratory [address] [address] [address] Wendi Martinez Glucose [Mass/Vol] 148 mg/dL Normal [facility] Comment on above: Performed By: #### A 1C #### [facility] [address] [place], [place] [address] Dr. Wendi Martinez HbA1c (Bld) [Mass fraction] 6.8 % Critically high 4.5-6.2 [facility] Comment on above: Performed By: #### A 1C #### [facility] [address] [address] [address] Wendi Martinez Vital Signs Date Time Vital Sign Value Performing Clinician Facility 04-14-2024 10:40-0500 Body height 187.96 cm Cedric Ball DO Work Phone: [facility] 04-14-2024 10:40-0500 Body mass index (BMI) [Ratio] 34.4 kg/m2 Cedric Ball DO Work Phone: [facility] 04-14-2024 10:40-0500 Body weight 121.78 kg Cedric Ball DO Work Phone: [facility] 04-14-2024 10:40-0500 Diastolic blood pressure 89 mm[Hg] Cedric Ball DO Work Phone: [facility] 04-14-2024 10:40-0500 Heart rate 97 /min Cedric Ball DO Work Phone: [facility] 04-14-2024 10:40-0500 Respiratory rate 12 /min Cedric Ball DO Work Phone: [facility] 04-14-2024 10:40-0500 Systolic blood pressure 153 mm[Hg] Cedric Ball DO Work Phone: [facility] 12-14-2023 10:27-0400 Body height 187.96 cm [facility] 12-14-2023 10:27-0400 Body mass index (BMI) [Ratio] 35.3 kg/m2 [facility] 12-14-2023 10:27-0400 Body weight 124.73 kg [facility] 12-14-2023 10:27-0400 Diastolic blood pressure 80 mm[Hg] [facility] 12-14-2023 10:27-0400 Heart rate 90 /min [facility] 12-14-2023 10:27-0400 SaO2% (BldA) [Mass fraction] 98 % [facility] 12-14-2023 10:27-0400 Systolic blood pressure 134 mm[Hg] [facility] 2023 10:07-0400 Body height 187.96 cm [facility] 2023 10:07-0400 Body mass index (BMI) [Ratio] 35.9 kg/m2 [facility] 2023 10:07-0400 Body weight 127.06 kg [facility] 2023 10:07-0400 Diastolic blood pressure 76 mm[Hg] [facility] 2023 10:07-0400 Heart rate 80 /min [facility] 2023 10:07-0400 Respiratory rate 16 /min [facility] 2023 10:07-0400 Systolic blood pressure 129 mm[Hg] [facility] 08-01-2022 09:30-0400 Body height 187.96 cm Cedric Ball Other [facility] [employer] Other 08-01-2022 09:30-0400 Body mass index (BMI) [Ratio] 35.28 kg/m2 Cedric Ball Other [facility] [employer] Other 08-01-2022 09:30-0400 Body weight 124.65 kg Cedric Ball Other [employer] Other 08-01-2022 09:30-0400 Diastolic blood pressure 78 mm[Hg] Cedric Ball Other [employer] Other 08-01-2022 09:30-0400 Respiratory rate 12 /min Cedric Ball Other [employer] Other 08-01-2022 09:30-0400 Systolic blood pressure 116 mm[Hg] Cedric Ball Other [employer] Other 08-01-2022 08:30-0400 Body height 187.96 cm Cedric Ball Other [employer] Other 08-01-2022 08:30-0400 Body mass index (BMI) [Ratio] 35.28 kg/m2 Cedric Ball Other [employer] Other 08-01-2022 08:30-0400 Body weight 124.65 kg Cedric Ball Other [employer] Other 08-01-2022 08:30-0400 Diastolic blood pressure 78 mm[Hg] Cedric Ball Other [employer] Other 08-01-2022 08:30-0400 Respiratory rate 12 /min Cedric Ball Other [employer] Other 08-01-2022 08:30-0400 Systolic blood pressure 116 mm[Hg] Cedric Ball Other [employer] Other Encounters Encounter Date Encounter Type Care Provider Facility Start: 07-06-2024 End: 07-06-[address] [facility] Work Phone: Start: 07-06-2024 End: 07-06-2024 Patient encounter procedure [facility] Work Phone: Start: 05-03-2024 Non-patient / Non-visit [facility] Work Phone: Start: 04-14-2024 End: 04-14-2024 ambulatory Cedric Ball DO Work Phone: [facility] Work Phone: Start: 04-14-2024 End: 04-14-2024 Patient encounter procedure Cedric Ball DO Work Phone: [facility] Work Phone: Start: 04-05-2024 End: 04-05-2024 ambulatory Cedric Ball DO Work Phone: [facility] Work Phone: Start: 04-05-2024 End: 04-05-2024 Patient encounter procedure Cedric Ball DO Work Phone: [facility] Work Phone: Start: 01-22-2024 End: 01-22-2024 ambulatory DO Cedric Ball Work Phone: [facility] Work Phone: Start: 01-22-2024 End: 01-22-2024 Patient encounter procedure DO Cedric Ball Work Phone: [facility] Work Phone: Start: 01-22-2024 End: 01-22-2024 Patient encounter procedure DO Cedric Ball Work Phone: [facility] Start: 01-22-2024 End: 01-22-2024 ambulatory DO Cedric Ball Work Phone: [facility] Work Phone: Start: 12-14-2023 End: 12-14-[address] [facility] Work Phone: Start: 12-14-2023 End: 12-14-2023 Patient encounter procedure [facility] Work Phone: Start: 12-09-2023 Non-patient / Non-visit [facility] Work Phone: Start: 10-13-2023 End: 10-13-2023 ambulatory [facility] Work Phone: Start: 10-13-2023 End: 10-13-2023 Patient encounter procedure [facility] Work Phone: Start: 08-26-2023 Non-patient / Non-visit [facility] Work Phone: Start: 2023 End: 2023 ambulatory [facility] Work Phone: Start: 2023 End: 2023 Encounter for general adult medical examination without abnormal findings [facility] Start: 2023 End: 2023 Patient encounter procedure [facility] Work Phone: Start: 07-14-2023 End: 07-14-2023 ambulatory [facility] Work Phone: Start: 07-14-2023 End: 07-14-2023 Patient encounter procedure [facility] Work Phone: Start: 04-21-2023 End: 04-21-2023 ambulatory Talya Mcnamara Other [employer] Other Start: 04-21-2023 Office outpatient vi sit 15 minutes Talyaregina Mcnamara [facility] Start: 04-21-2023 End: 04-21-2023 Patient encounter procedure [facility]- Start: 03-06-2023 End: 03-06-2023 ambulatory Cedric Lundberg Other [employer] Other Start: 03-06-2023 Telephone encounter Cedric Lundberg [facility] Start: 01-28-2023 End: 01-28-2023 ambulatory Talya Calvey Other [employer] Other Start: 01-28-2023 Office outpatient vi sit 15 minutes Talya Calvey [facility] Start: 11-12-2022 End: 11-12-2022 ambulatory Talya Calvey Other [employer] Other Start: 11-12-2022 Office outpatient vi sit 15 minutes Talya Calvey [facility] Start: 09-16-2022 End: 09-16-2022 ambulatory Talya Calvey Other [employer] Other Start: 09-16-2022 Office outpatient vi sit 15 minutes Talya Calvey [facility] Start: 08-01-2022 Encounter for genera l adult medical examination without abnormal findings Cedric Lundberg [facility] Start: 08-01-2022 Periodic preventive med est patient 40-64yrs Cedric Lundberg [facility] Start: 08-01-2022 End: 08-02-[address] CEDRIC LUNDBERG [facility] [employer] Other Start: 07-08-2022 End: 07-08-2022 ambulatory Talyaregina Mcnamara Other [employer] Other Start: 07-08-2022 Office outpatient ne w 45 minutes Talya Tishaey [facility] Start: 02-20-2022 End: 02-21-[address] CEDRIC LUNDBERG Facility: Start: 07-29-2021 Adult health examination Talyaregina Mcnamara Other [employer] Other Procedures Date Procedure Procedure Detail Performing Clinician Start: 01-22-2024 Plain X-ray of left hand DO Cedric Lundberg Work Phone: Start: 08-01-2022 End: 08-01-2022 PSA screening Cedric Lundberg Other Comment on above: Performed By: #### P [facility] #### [facility] Laboratory [address] [address] [address] Wendi Martinez Start: 09-14-2015 General examination of patient Talya Mcnamara Other Depression screening Talya Mcnamara Other Screening for malign ant neoplasm of colon Talya Mcnamara Other Plan of Treatment Date Care Activity Detail Author Start: 01-22-2024 Plain X-ray of left hand XR hand LT min 3V* [facility] Start: 01-22-2024 XR Hand - left GE 3 Views [facility] Immunizations Immunization Date Immunization Notes Care Provider Mane mathews 05-30-2023 zoster vaccine, live [facility] 02-10-2023 Prevnar 20 Talyaregina Mcnamara Other [facility] 01-02-2022 influenza, injectabl e, quadrivalent, preservative free [facility] 01-02-2022 influenza, injectabl e, quadrivalent, contains preservative Cedric Lundberg Other [facility] [employer] Other 03-04-2021 COVID-19 Vaccine Pfi zer - Documentation Purposes Only Cedric Lundberg Other [facility] 02-11-2021 pneumococcal polysaccharide vaccine, 23 valent Talyaregina Mcnamara Other [facility] 08-09-2020 COVID-19 Vaccine Pfi zer - Documentation Purposes Only Cedric Lundberg Other [facility] 07-19-2020 COVID-19 Vaccine Pfi zer - Documentation Purposes Only Cedric Lundberg Other [facility] 12-31-2019 influenza virus vaccine, split virus (incl. purified surface antigen) Talya Mcnamara Other [employer] Other 12-31-2019 influenza virus vaccine, unspecified formulation [facility] 01-04-2018 influenza virus vaccine, split virus (incl. purified surface antigen) Talya Mcnamara Other [employer] Other 01-04-2018 influenza virus vaccine, unspecified formulation [facility] 03-05-2015 influenza virus vaccine, split virus (incl. purified surface antigen) Talya Mcnamara Other [employer] Other 03-05-2015 influenza virus vaccine, unspecified formulation [facility] Payers Date Payer Category Payer Self-pay [id number] 2024 Unknown [id number] 1960 Unknown [id number] [id number] 1960 Unknown [id number] [id number] [id number] 1959 Unknown [id number] [id number] [id number] 1959 Unknown [id number] Unknown [id number] Unknown [id number] [id number] Unknown Raul CALLAHAN/PATRICIA [id number] Social History Date Type Detail Facility Unknown if ever smoked [employer] Other Sex Assigned At Sex Assigned At Bir th [employer] Other Start: 09-07-2020 End: 12-14-2023 Tobacco smoking status NHIS Ex-smoker (finding) [facility] Start: 1960 Sex Assigned At Male F [facility] Start: 04-05-2024 End: 07-06-2024 Sex Male (finding) [facility] Clinical Notes 07-08-2022 to 04-14-2024 Note Date & Type Note Facility 04-14-2024 Evaluation note Diagnosis Onset Date Resolution Cigarette nicotine dependence in remission acute April 14, 2024 10:30am Essential (primary) hypertension acute April 14 10:30am Nephrolithiasis acute March 242024 10:30am Obesity acute April 14, 2024 10:30am Type 2 diabetes mellitus with hyperglycemia acute April 14, 2024 10:30am Acute bronchitis due to other specified organisms noneactive 2024 10:30am Acute exacerbation of chronic obstructive airways disease noneactive April 14 10:30am Arthritis of carpometacarpal (CMC) joint of left thumb acute July 06, 2024 9:26am 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 acute July 06 9:26am Left wrist tendonitis acute Jun 9:26am Pain in left hand acute June 212024 9:26am Trigger finger, left index finger acute July 06, 2024 9:26am [facility] Work Phone: 1(143) 338-237911-01-2024 Evaluation note* Diagnosis Onset Date Resolution Status [...] left index finger acute April 05 10:37am [facility] Work Phone: 1(727) 404-584511-01-2024 Evaluation note* Diagnosis Onset Date Resolution Status Admit Date Arthritis of carpometacarpal (CMC) joint of left thumb acute Novemb er 2023 11:06am 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 acute January 21 11:06am Left wrist tendonitis acute Jan 11:06am Pain in left hand acute Novembe r 2023 11:06am Trigger finger, left index finger acute January 21 11:06am Trigger finger, left ring finger acu te January 22, 2024 11:06am Arthritis of carpometacarpal (CMC) joint of left thumb acute 2024 10:37am 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 acute April 05 10:37am Left wrist tendonitis acute Mar uary 2024 10:37am Pain in left hand acute April 05, 2024 10:37am Trigger finger, left index finger acute April 05 10:37am Cigarette nicotine dependenc e in remission acute April 14 10:30am Essential (primary) hypertension acu te April 14, 2024 10:30am Nephrolithiasis acute March 242024 10:30am Obesity acute April 14, 2024 10:30am Type 2 diabetes mellitus wit h hyperglycemia acute April 14 10:30am [facility] Work Phone: 1(793) 340-306001-30-2024 Evaluation note* Encounter Date Diagnosis Assessment Notes [...] Left hand pain (ICD- 10 - M79.642) [facility] Other 12-15-2023 Evaluation note* Encounter Date Diagnosis Assessment Notes Treatment Notes Treatment Clinical Notes Feb, Essential (primary) hypertension (ICD-10 - I10) [facility] Other 11-08-2023 Evaluation note* Encounter Date Diagnosis [...] Left hand pain (ICD- 10 - M79.642) [facility] Other 08-23-2023 Evaluation note* Encounter Date Diagnosis [...] tolerated the injection well without adverse reaction. [facility] Other 06-27-2023 Evaluation note* Encounter Date Diagnosis [...] r of left hand (ICD-10 - M65.352) [facility] Other 05-12-2023 Evaluation note* Encounter Date Diagnosis [...] tobacco use 1 ppd x 40 years [facility] Other 05-12-2023 Evaluation note* Encounter Date Diagnosis [...] (quit 5 years ago) Recommend LDCT chest [facility] Other 04-18-2023 Evaluation note* Encounter Date Diagnosis [...] and tingle for hours after this injection. [facility] Other Evaluation note* Diagnosis Onset Date Resolution Status Arthritis of carpometacarpal (CMC) joint of left thumb acute 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 acute Pain in left hand acute Trigger finger, left index finger acute Trigger finger, left ring finger acute [facility] Work Phone: Evaluation note* Diagnosis Onset Date Resolution Status Arthritis of carpometacarpal (CMC) joint of left thumb acute 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 acute Trigger finger, left index finger acute Trigger finger, left ring finger acute Cigarette nicotine dependence in remission acute Essential (primary) hypertension acute Nephrolithiasis acute Type 2 diabetes mellitus with hyperglycemia acute Wellness examination noneact graham [facility] Work Phone: Evaluation note* Diagnosis Onset Date [...] acute Trigger finger, left ring finger acute [facility] Work Phone: Evaluation note* Diagnosis Onset Date [...] Type 2 diabetes mellitus with hyperglycemia acute [facility] Work Phone: Evaluation note* Diagnosis Onset Date [...] acute Trigger finger, left ring finger acute [facility] Work Phone: History general Narrative - Reported* Type Description Date Medical History kidney stones Medical History anxiety Medical History pre diabetic Surgical History lithotripsy [facility] Other History general Narrative - Reported* Type [...] History COLONOSCOPY Hospitalization History SEE SURGICAL HX CRESCEL [facility] [employer] Other Summary Purpose Family History Relationship Condition [...] Date/ Time Advance Directives No September 30 10:29am Chief Complaint and Reason for Visit [...] y 2024 10:37am Cigarette nicotine dependence in [facility] on April 14, 2024 10:30am Essential (primary) hypertension April 14, 2024 10:30am Nephrolithiasis April 14, 2024 1 0:30am Obesity April 14, 2024 1 0:30am Type 2 diabetes mellitus with hyperglyce denisha April 14, 2024 10:30am Chief Complaint Admit Date 4 month f/u April 14, 2024 1 0:30am 3 MONTHS July 06, 2024 9:2 6am Reason for Visit Admit Date Cigarette nicotine dependence in [place] on April 14, 2024 10:30am Essential (primary) hypertension April 14, 2024 10:30am Nephrolithiasis April 14, 2024 1 0:30am Obesity April 14, 2024 1 0:30am Type 2 diabetes mellitus with hyperglyce denisha April 14, 2024 10:30am Acute bronchitis due to other specified organisms April 14, 2024 10:30am Acute exacerbation of chronic obstructiv e airways disease April 14, 2024 10:30am Arthritis of carpometacarpal (CMC) joint of left thumb July 06, 2024 9:26am 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 July 06, 2024 9:26am Left wrist tendonitis July 06, 2024 9 :26am Pain in left hand July 06, 2024 9:2 6am Trigger finger, left index finger July 06, 2024 9:26am Additional Source Comments REASON FOR VISIT (unrecogniz ed section and content) Left Hand DupuytrensANNUAL W ELLNESSANNUAL WELLNESSRecheck Left HandRecheck Left ThumbRecheck Left HandNo InformationRecheck Left Hand And Wrist (unrecognized sect ion and content) No Status Records FoundNo Status Records Found INFORMATION SOURCE (unrecogn ized section and content) DATE CREATED AUTHOR 08/02/2022 [facility] DATE CREATED AUTHOR 'S ORGANIZ ATION 01/24/2024 [facility] Care Teams (unrecognized sec tion and content) Team Status: Active Member Role Status Dates Cedric Lundberg DO Primary Care Provider Active Team [...] Team Status: Inactive Member Role Status Dates Talya Mcnamara MD Attending Provider Active Start: [...] Team Status: Active Member Role Status Willie Lunbderg DO Primary Care Provide r, Attending Provider [...] April 14, 2024 End: April 14, 2024 Team Status: Active Member Role Status Dates Cedric Lundberg DO Primary Care Provide r, Attending Provider Active Start: May 03, 2024 Team Status: Inactive Member Role Status Dates Cedric Lundberg DO Primary Care Provider Active Start: July 06, 2024 End: July 06, 2024 Talya Mcnamara MD Attending Provider Active Start: July 06, 2024 End: July 06, 2024 Goals (unrecognized section and content) Goals [...] BE BASED ON THE PRIMARY CLINICAL RECORDS. [facility] [employer] [facility]. provides no warranty or guarantee of the accuracy or completeness of information in this document.
[2024-08-17 09:32] LABS: Basophils Absolute Auto 0.1 10^3/uL (0.0-0.1); Basophils Percent Auto 0.9 % (0.2-2.0); Eosinophils Absolute Auto 0.3 10^3/uL (0.0-0.7); Eosinophils Percent Auto 3.8 % (0.9-7.0); Hematocrit 44.3 % (42.0-54.0); Hemoglobin 15.5 g/dL (14.0-18.0); Immature Granulocytes Abs Auto 0.02 10^3/uL (0.00-0.03); Immature Granulocytes Pct Auto 0.3 % (0.0-0.5); Lymphocytes Absolute Auto 2.9 10^3/uL (1.2-3.8); Lymphocytes Percent Auto 36.7 % (20.5-60.0); Mean Corpuscular Hemoglobin 31.5 pg (25.9-34.0); Mean Platelet Volume 9.6 fL (9.5-13.5); Monocytes Absolute Auto 0.8 10^3/uL (0.3-0.8); Monocytes Percent Auto 9.8 % (1.7-12.0); Neutrophils Absolute Auto 3.9 10^3/uL (1.4-6.5); Neutrophils Percent Auto 48.5 % (43.0-75.0); Platelet Count 381 10^3/uL (150-450); Red Blood Count 4.92 10^6/uL (4.70-6.10); Red Cell Distribution Width 11.9 % (11.0-15.0)
[2024-08-17 09:50] LABS: Estimated Average Glucose 203 mg/dL; Glycohemoglobin A1C 8.7 % (4.5-6.2)
[2024-08-17 10:03] LABS: Creatinine Urine Random 202.89 mg/dL (20.00-300.00); Microalbum Creatinine Ratio Ur 11.8 mg/g (0.0-29.9); Microalbumin Urine Random 2.4 mg/dL (<=30.0)
[2024-08-17 10:05] LABS: Alanine Aminotransferase 41 U/L (16-63); Albumin Globulin Ratio 1.1; Alkaline Phosphatase 75 U/L (46-116); Anion Gap 14.8; Aspartate Amino Transferase 21 U/L (15-37); BUN Creatinine Ratio 12.4; Bilirubin Total 0.5 mg/dL (0.2-1.0); Calcium 8.9 mg/dL (8.5-10.1); Carbon Dioxide 30.6 mmol/L (21.0-32.0); Chloride 101 mmol/L (98-107); Chol HDL Ratio 3.2; Cholesterol 174 mg/dL (<=200); Estimated GFR (African America >60 (>=60 mL/min/1.73m^2); Estimated GFR (Non-African Ame >60 (>=60 mL/min/1.73m^2); Globulin 3.6 g/dL; Glucose 201 mg/dL (74-106); HDL Cholesterol 55 mg/dL (40-60); Potassium 3.4 mmol/L (3.5-5.1); Sodium 143 mmol/L (136-145); Total Protein 7.6 g/dL (6.4-8.2); Triglycerides 157 mg/dL (<=150); VLDL CHOLESTEROL 31.4 mg/dL
[2024-08-17 11:16] LABS: Prostate Specific Antigen Scrn 1.67 ng/mL (<=4.00)
== END 2024-08-17 09:09 | disposition home or self-care (01) ==
LOC: LAB 09:10
PROVIDERS: PCP Internal Medicine; Visit Provider Internal Medicine
DX: Z00.00 Encounter for general adult medical examination without abnormal findings (principal); E11.65 Type 2 diabetes mellitus with hyperglycemia; Z12.5 Encounter for screening for malignant neoplasm of prostate
CPT/HCPCS: 36415; 80053; 80061; 82043; 82570; 83036; 85025; G0103